=== PATIENT | female | born 1950 | race Caucasian/White ===

== ENCOUNTER 2023-12-27 07:48 | Emergency (ER) | payer OTHER, SELFPAY ==
[2023-12-27 08:00] VITALS: BP 143/76
--- NOTE | 2023-12-27 08:58 | CON.VAS ---
Consultation
Consultation Request
Performing Provider: Kajal
Reason for Consultation: New left hip pain
Medical History
-
Chief Complaint: Left hip pain
History of Present Illness:
73-year-old female with history of COPD, current smoker, PAD (vascular interventional history below), hypercholesterolemia, and GERD. Patient here today for new left hip pain that began yesterday morning. Patient noticed it upon waking yesterday,
it has worsened since that time. Patient has known chronic occlusions in bilateral SFA's. Also has a history of angioplasty/stenting in the left leg.
Vascular consult for possible buttock claudication/cold left leg/left hip pain. Patient seen in the ER bedside with Dr. Rdz. Patient's left foot is mildly cooler than the right, slight difference in color when comparing feet. Doppler PT
signals present, +2 right femoral pulse, +1 left femoral pulse.
Vascular history:
06/26/20- Angioplasty of the left superficial femoral artery using a 5 mm drug-eluting balloon, angioplasty and stent of the left popliteal artery using a 5x 80 Zilver PTX.
08/23/19- Angioplasty and stent of the left SFA with a 6 x 80, 6 x 140 Zilver stent.
Past Medical History
Past Medical History: COPD, HTN and Hypercholesterolemia
Past Surgical History: Cholecystectomy and Other (Lower extremity angioplasty/stents)
Social History
Tobacco: Smoker (1.5 ppd)
Personal:
Living: With Family
Family History
Family History: Reviewed & Not Pertinent
Allergies / Home Medications
Allergy/AdvReac Type Severity Reaction Status Date / Time
moxifloxacin [From Avelox] Allergy Severe Anaphylaxis Verified 12/27/23 08:02
Medication Instructions Recorded Confirmed Type
clopidogrel 75 mg tablet 75 mg PO DAILY #30 tabs 08/23/19 10/20/22 Rx
simvastatin 20 mg tablet 20 mg PO HS High cholesterol 02/26/22 10/20/22 History
acetaminophen 325 mg tablet 650 mg PO Q4H PRN mild pain 10/20/22 10/20/22 History
(Tylenol)
aspirin 81 mg tablet,delayed 81 mg PO DAILY Blood clot 10/20/22 10/20/22 History
release prevention/tx
dextromethorphan-guaifenesin 30 1 tab PO Q12H PRN cough 10/20/22 10/20/22 History
mg-600 mg tablet extended
hr (Mucinex DM)
fluticasone fur. 100 mcg-umeclid 1 inh inhalation R DAILY 10/20/22 10/20/22 History
62.5 mcg-vilant 25 mcg Lung/breathing issues
inhalat.powder (Trelegy Ellipta)
kbnfqdog-bkroqsfu-ynek 8 mg-folic 1 tab PO DAILY Supplement 10/20/22 10/20/22 History
ac 400 mcg-vit K 10 mcg chew
tablet (Centrum Chewables)
benzonatate 100 mg capsule 200 mg PO BID #14 caps 10/23/22 Rx
budesonide 0.5 mg/2 mL suspension 0.5 mg (2 mL) inhalation R BID #1 10/23/22 Rx
for nebulization appful
dextromethorphan-guaifenesin 10 10 ml PO Q4H PRN cough #474 mL 10/23/22 Rx
mg-100 mg/5 mL oral liquid
doxycycline hyclate 100 mg capsule 100 mg PO Q12 #3 caps 10/23/22 Rx
nicotine 21 mg/24 hr daily 21 mg transdermal DAILY #28 ea 10/23/22 Rx
transdermal patch
pantoprazole 40 mg tablet,delayed 40 mg PO DAILY #7 tabs 10/23/22 Rx
release
prednisone 10 mg tablet 40 mg PO DAILY #16 tabs 10/23/22 Rx
Review of Systems
-
History Source: Patient and Family
All other systems: Negative unless noted
Constitutional: Reports No Symptoms
EENT: Reports No Symptoms
Respiratory: Reports No Symptoms
Cardiac: Reports No Symptoms
Vascular: Denies Leg Pain / Claudication
Abdomen/GI: Reports No Symptoms
: Reports No Symptoms
Musculoskeletal: Reports Joint Pain and Muscle Pain
Skin: Reports No Symptoms
Neurological: Reports No Symptoms
Endocrine: Reports No Symptoms
Physical Exam
Vital Signs
Temp Pulse Resp BP Pulse Ox
98.0 F 80 16 143/76 98
12/27/23 08:00 12/27/23 08:00 12/27/23 08:00 12/27/23 08:00 12/27/23 08:00
Physical Exam
General: No Apparent Distress
HEENT: Normocephalic and Atraumatic
Respiratory: Non Labored Respirations
Cardiac: Negative JVD
Breast: Deferred by me
GI: Soft and Non Tender
Musculoskeletal: No Clubbing, No Cyanosis and No Edema
Skin: Warm
Neuro: Awake, Alert and Oriented
Psych: Calm
Pulses: Left Femoral: +1, Right Femoral: +2 and Bilateral Posterior Tibial: Doppler
Assessment / Plan
-
73-year-old female with new left hip pain, known PAD history
Plan:
-CTA aorta with runoff, will follow-up after CTA
-Does not seem to be vascular in nature, patient with PT Doppler signals and palpable femoral pulses
-Seen and assessed with Dr. Rdz
[2023-12-27 09:01] LABS: % Basophils 0.8 % (0-2); % Eosinophils 2.7 % (0-6); % Immature Granulocytes 0.3 % (0-0.5); % Lymphocytes 22.8 % (20.5-51.1); % Monocytes 6.6 % (1.7-9.3); % Neutrophils 66.8 % (42.2-75.2); Absolute Basophils 0.1 10^3/uL (0-0.2); Absolute Eosinophils 0.2 10^3/uL (0-0.7); Absolute Monocytes 0.6 10^3/uL (0.1-0.6); Absolute Neutrophils 5.9 10^3/uL (1.4-6.5); Hematocrit 44.2 % (37.0-47.0); Hemoglobin 15.1 g/dL (12.0-16.0); Mean Corp Hgb Conc. 34.2 g/dL (33.0-37.0); Mean Corpuscular Hgb 31.2 pg (27.0-31.0); Mean Corpuscular Volume 91.3 fL (81.0-99.0); Mean Platelet Volume 9.9 fL (7.4-10.4); Nucleated Red Blood Cells % 0 %; Platelet Count 189 10^3/uL (130-400); Red Blood Cell Count 4.84 10^6/uL (4.20-5.40); Red Cell Dist. Width 13.2 % (11.5-14.5); White Blood Cell Count 8.8 10^3/uL (4.8-10.8)
[2023-12-27 09:13] LABS: INR 1.12; PT 14.2 Sec (11.4-14.6)
[2023-12-27 09:14] LABS: APTT 30.4 Sec (23.4-35.0)
[2023-12-27] MEDS: DILAUDID 1 MG IV ×2 (09:14→11:17)
[2023-12-27] MEDS: NSS 1000 IV (09:14)
[2023-12-27] MEDS: ZOFRAN 4 MG IV ×2 (09:14→11:16)
[2023-12-27 09:17] LABS: ALT (SGPT) 24 U/L (0-35); AST (SGOT) 20 U/L (14-36); Alkaline Phosphatase 80 U/L (38-126); Blood Urea Nitrogen 14 mg/dl (7-17); Calcium 8.8 mg/dl (8.4-10.2); Carbon Dioxide 25 mmol/L (22-30); Chloride 105 mmol/L (98-107); Glucose 124 mg/dl (70-99); Potassium 4.2 mmol/L (3.5-5.1); Sodium 134 mmol/L (135-145); Total Bilirubin 1.1 mg/dl (0.2-1.3); Total Protein 7.4 g/dl (6.3-8.2); eGFR > 60.00
--- NOTE | 2023-12-27 09:52 | ED.GENMED ---
History of Present Illness
General
Chief Complaint: Musculo-Skeletal Complaint
Source: patient, records and previous hospital records
Exam Limitations: none
Time Seen by Provider: 12/27/23 08:19
Nursing documentation reviewed up to this point in time: agreed with
Travel History
Have you had any contact with someone who has COVID-19?: No
Do you have any symptoms of coronavirus? Fever > 100 degrees, chills, cough, shortness of breath, sore throat, loss of taste or smell, muscle aches, or headache?: No
History of Present Illness
History of Present Illness:
73-year-old female history of peripheral vascular disease status post stenting continues to smoke lumbar disc disease, ligamentous injury to left knee presents with fairly severe acute left buttock pain, 2 days ago Her up at night took 3 oxycodone
through the night without much relief states she has chronic coolness in her left foot, minimal pain now, has seen Dr. Rdz previously initially says pain is in her hip appears to be more in her buttock actually somewhat worse with movement no
fevers no nausea or vomiting
Past History
Past History
ED Past Medical History: COPD and Hypercholesterolemia
ED Past Surgical History: Cholecystectomy, Orthopedic and Other (Peripheral vascular procedures)
Social History
Tobacco: Smoker
Alcohol: None
Drug: None
Living: with family
Employment: Retired
Family History
Family History: Other
Phy Exam
Physical Exam
Physical Exam:
Physical Exam
General: 73-year-old female looks uncomfortable
Neck: No jaundice does have a smell of tobacco
Heart: s1/s2 regular rate and rhythm, no murmur. equal radial pulses.
Lungs: Faint expiratory wheeze
Abdomen: Nontender
Neuro: alert and oriented. no focal neurological deficits
Skin: no rash
Psychiatric: well kept. interactive and cooperative
Extremities: Left lower extremity cool slightly no pain with range of motion of the bilateral hips
Course
Orders/Labs/Results
Orders:
Orders
12/27/23 08:36
CT Abd Aorta Angio W/ Run Off Urgent
Comment:
Reason For Exam: claudication, back and leg pain
12/27/23 08:55
Complete Blood Count/With Diff Urgent
Comprehensive Metabolic Panel Urgent
PTT Urgent
Prothrombin Time Urgent
12/27/23 09:09
0.9% Sodium Chloride 1000 ml [Nss] 1,000 ml IV BOLUS
HYDROmorphone [Dilaudid] 1 mg IV NOW STA
Ondansetron Injectable [Zofran] 4 mg IV NOW STA
12/27/23 11:06
Ketorolac [Toradol] 15 mg IV NOW STA
12/27/23 11:07
HYDROmorphone [Dilaudid] 1 mg IV NOW STA
Ondansetron Injectable [Zofran] 4 mg IV NOW STA
12/27/23 13:30
UA Reflex to Culture [Urinalysis Reflex To Culture] Urgent
Date Specimen was Collected: 12/27/23
Time Specimen was Collected: 13:25
Abnormal Lab Results
12/27/23
08:55
MCH 31.2 H pg
(27.0-31.0)
Sodium 134 L mmol/L
(135-145)
Glucose 124 H mg/dl
(70-99)
12/27/23 08:55
12/27/23 08:55
Vital Signs
Initial and Last Documented VS:
Initial Vital Signs
Temp Pulse Resp BP Pulse Ox
98.0 F 80 16 143/76 98
12/27/23 08:00 12/27/23 08:00 12/27/23 08:00 12/27/23 08:00 12/27/23 08:00
Last Documented Vital Signs
Temp Pulse Resp BP Pulse Ox
98.1 F 80 18 120/75 96
12/27/23 13:30 12/27/23 13:30 12/27/23 13:30 12/27/23 13:30 12/27/23 13:30
MDM/Problems Addressed
Differential Diagnosis Includes:
PVD claudication lumbar radicular doubt acute fracture or infection of the knee
MDM/Problems Addressed:
Left buttock hip pain
Chronic conditions affecting care:
PVD smoking lumbar disc disease
Acute Exacerbation and/or Progression of Chronic Illness:
PVD smoking lumbar disc disease
*Radiology
Radiology exam reviewed: preliminary read by ED provider
*Pulse Oximetry
Patient hypoxic: no
*Certified Nuclear Medicine Technologist Interpretation
Rate: normal
Interpretation: normal
Heart Rate: 78
Rhythm: sinus
*Critical Care Note
Total Time (30-74mins, 75-104mins- exclusive of procedures): Not Applicable
Data Reviewed
Review of Other/Old Records Reveals: Labs and Progress Notes
Source: records, family and physician
Update Note
Update Note:
Update initial concern for occluded stent she is having rest pain which could be claudication I did ask vascular to see her, she has palpable groin pulses and dopplerable pulses in her feet, agree with proceeding with a CT angiogram
11 AM CAT scan completed report reviewed
Reviewed with vascular
Patient appears more comfortable states she still in pain she is actually point tender over her left sacroiliac joint she is wondering about a UTI we will check a urine try to get her comfortable
ED Attending Note
-
Portions of this chart may have been created with voice recognition software.� Occasional wrong word or��sound alike� substitutions may have occurred due to the inherent limitations of voice recognition software.
Discharge Plan
Departure
Patient Disposition: Home (Routine Discharge)
Date of Disposition: 12/27/23
Time of Disposition: 12:14
Patient with high blood pressure during this ER visit?: No
Condition: Good
Discharge Problem:
Back pain
Instructions: Using Cold for Pain, Back Pain
Prescriptions:
New
oxycodone 10 mg tablet
10 mg PO Q8H PRN (Reason: Pain) Qty: 14 0RF
No Action
clopidogrel 75 MG tablet
75 mg PO DAILY Qty: 30 0RF
simvastatin 20 MG tablet
20 mg PO HS
acetaminophen [Tylenol] 325 mg Tablet
650 mg PO Q4H PRN (Reason: mild pain)
aspirin 81 mg Tablet,Delayed Release (Dr/Ec)
81 mg PO DAILY
Mucinex DM 30-600 mg Tablet Extended Release 12 Hr
1 tab PO Q12H PRN (Reason: cough)
Trelegy Ellipta 100-62.5-25 mcg blister with device
1 inh INHALATION R DAILY
Centrum Chewables 8 mg-400 mcg- 10 mcg Tablet,Chewable
1 tab PO DAILY
doxycycline hyclate 100 mg Capsule
100 mg PO Q12 Qty: 3 0RF
benzonatate 100 mg Capsule
200 mg PO BID Qty: 14 0RF
dextromethorphan-guaifenesin 10-100 mg/5 mL liquid
10 ml PO Q4H PRN (Reason: cough) Qty: 474 0RF
pantoprazole 40 mg Tablet,Delayed Release (Dr/Ec)
40 mg PO DAILY Qty: 7 0RF
nicotine 21 mg/24 hr Patch 24 Hour
21 mg transdermal DAILY Qty: 28 0RF
budesonide 0.5 mg/2 mL Suspension For Nebulization
0.5 mg inhalation R BID Qty: 1 0RF
prednisone 10 mg tablet
40 mg PO DAILY Qty: 16 0RF
Rx Instructions:
take 4 tabs 1 day then 3 tabs X2 days then 2 tabs X2 days then 1 tab X2 days.
prednisone 10 mg Tablet
See Rx Instructions .ROUTE .COMPLEX Qty: 45 0RF
Rx Instructions:
Take By Mouth:
50 mg daily x3 days, 40 mg daily x3 days,
30 mg daily x3 days, 20 mg daily x3 days,
10 mg daily x3 days
Referrals:
Immanuel Orellana, DO [Family Provider] - Next open appointment
Interventions
Interventions:
*Risk Screen - Suicide Last Done: 12/27/23 08:30
*General Assessment Last Done: 12/27/23 08:30
*Neglect/Abuse Screening Last Done: 12/27/23 08:30
ED- Fall Risk Assessment Last Done: 12/27/23 11:28
*ED COVID-19 Vaccine History Last Done: 12/27/23 08:00
*Nursing Disposition Last Done: 12/27/23 14:18
ED-Musculoskeletal Assessment Last Done: 12/27/23 08:30
Discharge Date and Time
Discharge Date/Time: 12/27/23 14:19
[2023-12-27] MEDS: TORADOL 15 MG IV (11:15)
[2023-12-27 11:27] VITALS: BP 118/72
[2023-12-27 13:30] VITALS: BP 120/75
[2023-12-27 13:42] LABS: Urine Albumin Trace (Neg - Trace); Urine Bilirubin Negative (Negative); Urine Character Clear (Clear); Urine Color Yellow; Urine Glucose Negative (Negative); Urine Ketone Negative (Negative); Urine Leukocyte Negative (Negative); Urine Nitrite Negative (Negative); Urine Occult Blood Negative (Negative); Urine Specific Gravity 1.015 (<1.030); Urine Urobilinogen 1+ (Neg - 1+)
== END 2023-12-27 14:19 | disposition home or self-care (01) ==
LOC: EMR 07:48
PROVIDERS: EMERGENCY PHYSICIAN Emergency Medicine; FAMILY PHYSICIAN Family Medicine; OTHER PHYSICIAN Surgery
DX: M54.9 Dorsalgia, unspecified (principal); F17.210 Nicotine dependence, cigarettes, uncomplicated; J44.9 Chronic obstructive pulmonary disease, unspecified; I73.9 Peripheral vascular disease, unspecified; E78.00 Pure hypercholesterolemia, unspecified; K21.9 Gastro-esophageal reflux disease without esophagitis
CPT/HCPCS: 99285; 96374; 96375 ×2; 96361; 96376 ×2; 75635; 80053; 81003; 85025; 85610; 85730; Q9967

== ENCOUNTER 2023-12-28 07:24 | Emergency (ER) | payer OTHER, SELFPAY ==
[2023-12-28 07:28] VITALS: BP 131/74
[2023-12-28] MEDS: DILAUDID 1 MG IV ×2 (08:02→09:40)
[2023-12-28 08:04] VITALS: BP 130/57
[2023-12-28] MEDS: ZOFRAN 4 MG IV (08:12)
--- NOTE | 2023-12-28 09:32 | ED.GENMED ---
History of Present Illness
General
Chief Complaint: Back Pain
Source: patient and family
Time Seen by Provider: 12/28/23 07:43
Travel History
Have you had any contact with someone who has COVID-19?: No
Do you have any symptoms of coronavirus? Fever > 100 degrees, chills, cough, shortness of breath, sore throat, loss of taste or smell, muscle aches, or headache?: No
History of Present Illness
History of Present Illness:
73-year-old female presents with persistent and severe back pain. She has a history of back surgeries. The patient was seen yesterday and had a full workup and was seen by vascular to rule out a vascular etiology. The pain persist. Pain is in
her left upper buttocks. The patient denies tingling. Does report some radiation down toward the knee at times. No motor weakness. No loss of bowel or bladder function. No fevers. Patient states she has been taking oxycodone without relief
Past History
Past History
ED Past Medical History: COPD, Hypercholesterolemia and Other (Peripheral vascular disease, chronic bronchitis)
ED Past Surgical History: Cholecystectomy, Orthopedic and Other (Peripheral vascular procedures)
Social History
Tobacco: Smoker
Alcohol: None
Drug: None
Living: with family
Employment: Retired
Family History
Family History: Other
Phy Exam
Physical Exam
Physical Exam:
CONSTITUTIONAL Patient alert and oriented to person, place and time. Moderate pain distress. Vital signs reviewed.
HEAD atraumatic, normocephalic.
EYES eyelids normal to inspection, Pupils equally round and reactive to light, Extraocular muscles intact, Conjunctiva normal, Sclera normal.
NECK normal range of motion, Trachea midline, no jugular venous distention.
RESPIRATORY CHEST No respiratory distress noted, Chest expansion equal
BACK normal inspection, no obvious deformities, limited range of motion due to pain
UPPER EXTREMITY range of motion normal, Motor strength normal, no cyanosis, no edema.
LOWER EXTREMITY range of motion normal, Motor strength normal, no cyanosis, no edema. Chronic venous stasis changes bilaterally
NEURO Speech normal, No focal motor deficits, [place] coma scale 15, Memory normal, Cranial Nerves intact to screening exam.
SKIN skin warm, dry, and normal in color.
PSYCHIATRIC patient oriented to person place and time, Normal affect.
Course
Orders/Labs/Results
Orders:
Orders
12/28/23 07:54
HYDROmorphone [Dilaudid] 1 mg IV NOW STA
12/28/23 08:10
Ondansetron Injectable [Zofran] 4 mg .ROUTE .STK-MED ONE
12/28/23 08:12
Ondansetron Injectable [Zofran] 4 mg IV NOW STA
12/28/23 09:28
Dexamethasone Sod Phosphate [Decadron] 10 mg IV NOW STA
HYDROmorphone [Dilaudid] 1 mg IV NOW STA
Vital Signs
Initial and Last Documented VS:
Initial Vital Signs
Temp Pulse BP Pulse Ox
97.6 F 82 131/74 93
12/28/23 07:28 12/28/23 07:28 12/28/23 07:28 12/28/23 07:28
Last Documented Vital Signs
Temp Pulse Resp BP Pulse Ox
97.6 F 81 18 127/65 94
12/28/23 07:28 12/28/23 09:46 12/28/23 09:46 12/28/23 09:46 12/28/23 09:46
MDM/Problems Addressed
MDM/Problems Addressed:
Low back pain, lumbar radiculopathy
*Pulse Oximetry
Patient hypoxic: no
*Critical Care Note
Total Time (30-74mins, 75-104mins- exclusive of procedures): Not Applicable
Data Reviewed
Review of Other/Old Records Reveals: Progress Notes (Consult from vascular reviewed from yesterday)
Source: patient
Further Testing Considered But Not Given:
Consider CT scan with patient CT imaging yesterday to rule out vascular etiology
Patient Management
Escalation/DeEscalation of care consider admission/obs:
Reassessed the patient and she does feel a bit better. Mild pain persist. Will add steroids. Patient will call her [employer] tomorrow for possible injections. Outpatient follow-up with spine as well
ED Attending Note
-
Portions of this chart may have been created with voice recognition software.� Occasional wrong word or��sound alike� substitutions may have occurred due to the inherent limitations of voice recognition software.
Discharge Plan
Departure
Patient Disposition: Home (Routine Discharge)
Date of Disposition: 12/28/23
Time of Disposition: 10:47
Patient with high blood pressure during this ER visit?: No
Discharge Problem:
Acute lumbar radiculopathy
Instructions: Low Back Pain (DC), Radiculopathy (DC)
Prescriptions:
New
prednisone 10 mg Tablet
See Rx Instructions .ROUTE .COMPLEX Qty: 45 0RF
Rx Instructions:
Take By Mouth:
50 mg daily x3 days, 40 mg daily x3 days,
30 mg daily x3 days, 20 mg daily x3 days,
10 mg daily x3 days
No Action
clopidogrel 75 MG tablet
75 mg PO DAILY Qty: 30 0RF
simvastatin 20 MG tablet
20 mg PO HS
acetaminophen [Tylenol] 325 mg Tablet
650 mg PO Q4H PRN (Reason: mild pain)
aspirin 81 mg Tablet,Delayed Release (Dr/Ec)
81 mg PO DAILY
Mucinex DM 30-600 mg Tablet Extended Release 12 Hr
1 tab PO Q12H PRN (Reason: cough)
Trelegy Ellipta 100-62.5-25 mcg blister with device
1 inh INHALATION R DAILY
Centrum Chewables 8 mg-400 mcg- 10 mcg Tablet,Chewable
1 tab PO DAILY
doxycycline hyclate 100 mg Capsule
100 mg PO Q12 Qty: 3 0RF
benzonatate 100 mg Capsule
200 mg PO BID Qty: 14 0RF
dextromethorphan-guaifenesin 10-100 mg/5 mL liquid
10 ml PO Q4H PRN (Reason: cough) Qty: 474 0RF
pantoprazole 40 mg Tablet,Delayed Release (Dr/Ec)
40 mg PO DAILY Qty: 7 0RF
nicotine 21 mg/24 hr Patch 24 Hour
21 mg transdermal DAILY Qty: 28 0RF
budesonide 0.5 mg/2 mL Suspension For Nebulization
0.5 mg inhalation R BID Qty: 1 0RF
prednisone 10 mg tablet
40 mg PO DAILY Qty: 16 0RF
Rx Instructions:
take 4 tabs 1 day then 3 tabs X2 days then 2 tabs X2 days then 1 tab X2 days.
oxycodone 10 mg tablet
10 mg PO Q8H PRN (Reason: Pain) Qty: 14 0RF
Referrals:
Immanuel Orellana, [Family Provider] -
Activity Restrictions/Additional Instructions:
Please see your precision agriculture specialist or [employer] in the next 48 hours. Please rest. Return for bladder dysfunction, bowel dysfunction, fevers or any other concerns.
Interventions
Interventions:
*Risk Screen - Suicide Last Done: 12/28/23 08:07
*General Assessment Last Done: 12/28/23 08:04
*Neglect/Abuse Screening Last Done: 12/28/23 08:04
*ED COVID-19 Vaccine History Last Done: 12/28/23 07:30
ED-Musculoskeletal Assessment Last Done: 12/28/23 08:04
[2023-12-28] MEDS: DECADRON 10 MG IV (09:41)
[2023-12-28 09:46] VITALS: BP 127/65
== END 2023-12-28 11:51 | disposition home or self-care (01) ==
LOC: EMR 07:24
PROVIDERS: EMERGENCY PHYSICIAN Emergency Medicine; FAMILY PHYSICIAN Family Medicine
DX: M54.16 Radiculopathy, lumbar region (principal); J44.9 Chronic obstructive pulmonary disease, unspecified; E78.00 Pure hypercholesterolemia, unspecified; I73.9 Peripheral vascular disease, unspecified; F17.200 Nicotine dependence, unspecified, uncomplicated; Z90.49 Acquired absence of other specified parts of digestive tract
CPT/HCPCS: 99282; 96374; 96375; 96376

== ENCOUNTER → 2023-12-29 16:28 | Outpatient (REF) | payer OTHER, SELFPAY | LOC: RAD 16:28 | PROVIDERS: ATTENDING PHYSICIAN Family Medicine | DX: M54.16 Radiculopathy, lumbar region (principal) | CPT/HCPCS: 72110; 73502 ==

== ENCOUNTER 2024-01-01 08:16 | Inpatient (IN) | payer OTHER, SELFPAY ==
[2023-12-30] VITALS (7 sets, daily range): BP systolic 137–157; BP diastolic 64–81; BMI 29.6; BMI 29.1
--- NOTE | 2023-12-30 09:34 | ED.GENMED ---
History of Present Illness
General
Chief Complaint: Back Pain
Source: patient
Exam Limitations: none
Time Seen by Provider: 12/30/23 09:25
Nursing documentation reviewed up to this point in time: agreed with
Travel History
Have you had any contact with someone who has COVID-19?: No
Do you have any symptoms of coronavirus? Fever > 100 degrees, chills, cough, shortness of breath, sore throat, loss of taste or smell, muscle aches, or headache?: No
History of Present Illness
History of Present Illness:
The patient is a pleasant 73-year-old female with a past medical history of peripheral artery disease with stent placement, who comes in with complaints of acute onset of left lower back pain radiating down to the level of her left knee. Patient
denies numbness and weakness of the legs. She denies bowel and bladder incontinence. Patient was evaluated in the emergency department 3 days ago for this and underwent a CT angiogram and vascular consult who did not feel that patient's symptoms
were due to a vascular etiology. Patient reports she was seen by her primary care doctor last night because the pain was severe and despite taking oxycodone and prednisone, the pain is still severe and she is unable to walk. Patient reports that
her primary care doctor told her to come to the ED to get admitted to the hospital.
Past History
Past History
ED Past Medical History: COPD, Hypercholesterolemia and Other (Peripheral vascular disease, chronic bronchitis)
ED Past Surgical History: Cholecystectomy, Orthopedic and Other (Peripheral vascular procedures)
Social History
Tobacco: Smoker
Alcohol: None
Drug: None
Living: with family
Employment: Retired
Family History
Family History: Other
Review of Systems
Review of Systems
Allergies reviewed?: Yes
All Other Systems: ROS reviewed and negative except as documented in HPI and ROS
Constitutional: Reports no symptoms
EENT: Reports no symptoms
Respiratory: Reports no symptoms
Cardiac: Reports no symptoms
ABD/GI: Reports no symptoms
: Reports no symptoms
Musculoskeletal: Reports muscle pain and back pain
Skin: Reports no symptoms
Neurological: Reports no symptoms
Endocrine: Reports no symptoms
Hematologic/Lymphatic: Reports no symptoms
Psychiatric: Reports no symptoms
Phy Exam
Physical Exam
Physical Exam:
Physical Exam
General: Patient appears uncomfortable. Holding her left lower back
Neck: supple. no meningeal signs. normal posterior pharynx
Heart: s1/s2 regular rate and rhythm, no murmur. equal radial and femoral pulses bilaterally.
Lungs: no acute respiratory distress. clear bilaterally
Abdomen: normal bowel sounds. not tender. no CVAT
Neuro: alert and oriented. no focal neurological deficits. No saddle anesthesia. 5 out of 5 strength in all extremities.
Skin: no rash
Psychiatric: well kept. interactive and cooperative
Extremities: no edema. no calf tenderness. negative homans. good distal pulses. pulses obtained by Doppler in bilateral feet.
Course
Orders/Labs/Results
Orders:
Orders
12/30/23 09:59
CMP [Comprehensive Metabolic Panel] Urgent
Complete Blood Count/With Diff Urgent
12/30/23 10:02
HYDROmorphone [Dilaudid] 0.5 mg IV NOW STA
Ondansetron Injectable [Zofran] 4 mg IV NOW STA
12/30/23 11:13
HYDROmorphone [Dilaudid] 1 mg IV NOW STA
12/30/23 12:46
MR Lumbar Without Contrast Routine
Comment:
Reason For Exam: left sided back pain
Recent pill cam endoscopy?: No
12/30/23 12:47
Dexamethasone Sod Phosphate [Decadron] 4 mg IV NOW STA
12/30/23 12:54
Admit/Transfer Patient As Directed
Co-Sign Provider:
Level of Care: Observation services
Assign to:: Medical/Surgical
Physician / Group: back pain
Diagnosis: back pain
12/30/23 12:55
Code Status As Directed
Resuscitation Status: Full Code
12/30/23 13:11
Lorazepam [Ativan] 0.5 mg IV NOW STA
12/30/23 13:16
0.9% Sodium Chloride [Nss (Preservative Free)] 0.25 ml IV NOW STA
Abnormal Lab Results
12/30/23
09:59
WBC 14.2 H 10^3/uL
(4.8-10.8)
RBC 5.67 H 10^6/uL
(4.20-5.40)
Hgb 17.4 H g/dL
(12.0-16.0)
Hct 52.0 H %
(37.0-47.0)
Abs Immat Gran (auto) 0.1 H 10^3/uL
(0-0.05)
Absolute Neuts (auto) 10.0 H 10^3/uL
(1.4-6.5)
Absolute Monos (auto) 1.2 H 10^3/uL
(0.1-0.6)
BUN 27 H mg/dl
(7-17)
Glucose 119 H mg/dl
(70-99)
Total Protein 8.4 H g/dl
(6.3-8.2)
12/30/23 09:59
12/30/23 09:59
Vital Signs
Initial and Last Documented VS:
Initial Vital Signs
Temp Pulse Resp BP Pulse Ox
97.6 F 66 18 140/78 94
12/30/23 09:01 12/30/23 09:01 12/30/23 09:01 12/30/23 09:01 12/30/23 09:01
Last Documented Vital Signs
Temp Pulse Resp BP Pulse Ox
97.6 F 82 20 138/64 97
12/30/23 09:01 12/30/23 11:23 12/30/23 11:23 12/30/23 11:23 12/30/23 11:23
MDM/Problems Addressed
Differential Diagnosis Includes:
Acute back pain with sciatica, peripheral arterial disease, DVT
MDM/Problems Addressed:
Patient presents with acute left-sided back pain radiating down towards left knee
Chronic conditions affecting care:
Arthritic spine
*Radiology
Radiology exam reviewed: radiology read reviewed (Lumbar spine and hip x-ray reviewed from yesterday)
*Pulse Oximetry
Patient hypoxic: no
*EKG
Interpreted by ED Provider?: NA
*Critical Care Note
Total Time (30-74mins, 75-104mins- exclusive of procedures): Not Applicable
Data Reviewed
Review of Other/Old Records Reveals: Progress Notes (Vascular consult reviewed from 3 days ago which shows that they do not feel symptoms are related to patient's peripheral arterial disease)
Source: patient
Patient Management
Discussion with other providers: Hospitalist
Escalation/DeEscalation of care consider admission/obs:
Patient admitted for intractable acute left back pain
ED Attending Note
-
Portions of this chart may have been created with voice recognition software.� Occasional wrong word or��sound alike� substitutions may have occurred due to the inherent limitations of voice recognition software.
Discharge Plan
Departure
Patient Disposition: Admit
Date of Disposition: 12/30/23
Time of Disposition: 09:53
Admit to: Med/Surg
Presentation/result/management discussed w/ accepting MD/DO: Hospitalist
Condition: Good
Covid-19: Not Applicable
Discharge Problem:
Intractable low back pain
Interventions
Interventions:
*Risk Screen - Suicide Last Done: 12/30/23 09:38
*General Assessment Last Done: 12/30/23 09:38
*Neglect/Abuse Screening Last Done: 12/30/23 09:38
*ED COVID-19 Vaccine History Last Done: 12/30/23 09:38
ED-Musculoskeletal Assessment Last Done: 12/30/23 09:40
[2023-12-30 10:10] LABS: % Basophils 0.2 % (0-2); % Eosinophils 0.1 % (0-6); % Immature Granulocytes 0.4 % (0-0.5); % Lymphocytes 20.7 % (20.5-51.1); % Monocytes 8.2 % (1.7-9.3); % Neutrophils 70.4 % (42.2-75.2); Absolute Immature Granulocytes 0.1 10^3/uL (0-0.05); Absolute Lymphocytes 2.9 10^3/uL (1.2-3.4); Absolute Monocytes 1.2 10^3/uL (0.1-0.6); Hemoglobin 17.4 g/dL (12.0-16.0); Mean Corp Hgb Conc. 33.5 g/dL (33.0-37.0); Mean Corpuscular Hgb 30.7 pg (27.0-31.0); Mean Corpuscular Volume 91.7 fL (81.0-99.0); Mean Platelet Volume 10.2 fL (7.4-10.4); Nucleated Red Blood Cells % 0 %; Platelet Count 278 10^3/uL (130-400); Red Blood Cell Count 5.67 10^6/uL (4.20-5.40); White Blood Cell Count 14.2 10^3/uL (4.8-10.8)
[2023-12-30] MEDS: ZOFRAN 4 MG IV (10:13)
[2023-12-30] MEDS: DILAUDID 0.5 MG IV ×3 (10:15→21:09)
[2023-12-30 10:37] LABS: ALT (SGPT) 32 U/L (0-35); AST (SGOT) 23 U/L (14-36); Albumin 4.6 g/dl (3.5-5.0); Alkaline Phosphatase 79 U/L (38-126); Blood Urea Nitrogen 27 mg/dl (7-17); Calcium 9.8 mg/dl (8.4-10.2); Carbon Dioxide 30 mmol/L (22-30); Chloride 98 mmol/L (98-107); Estimated Creatinine Clearance 88 ml/min; Glucose 119 mg/dl (70-99); Potassium 4.4 mmol/L (3.5-5.1); Sodium 138 mmol/L (135-145); Total Bilirubin 1.1 mg/dl (0.2-1.3); Total Protein 8.4 g/dl (6.3-8.2); eGFR > 60.00
[2023-12-30] MEDS: DILAUDID 1 MG IV (11:16)
--- NOTE | 2023-12-30 12:22 | HPS.HSE ---
Addendum entered and electronically signed by Christopher Benitez MD 12/30/23 13:36:
73 y/o female who has a history of spine surgery by Dr.Gene Soares at [facility] in 2019 with cadaver bone , stated that she was doing so well. She woke up Friday with some pain which she walked it off and it went away. Friday morning she
woke up with more pain. She has been on steroids for the 2 days and saw PCP who also to go to the ER. She states that the pain is really bad in the left lower back going to the left leg. She has chronic numbness since surgery the left leg which
has not changed. No bowel or bladder incontinence. No fever no fall or injury no lifting weights. Patient was evaluated in the ER by vascular on 12/26/2022 when she was seen in the ER and the pain not to be felt secondary to PVD.
I saw and examined the patient.
The [employer] note was reviewed and I agree with the note.
Comment:
On examination awake alert oriented
Cardiovascular system S1-S2 appreciated
Chest clear to auscultation
Lower extremity numbness-chronic
Bilateral lower extremity good strength 5 x 5
Lumbar/sciatic area tenderness on the left side
Admit for pain control
I have reached out to Dr. Orellana via [employer] text
Steroids IV, pain control with Tylenol, lidocaine, Oxycodone and Dilaudid for severe pain
Baclofen ordered
We will proceed with an MRI without contrast
PT OT evaluation
Smoking cessation advised
Continue outpatient medicines for peripheral vascular disease, Atherosclerosis, also has infrarenal abdominal aorta hyperlipidemia, COPD, hypertension
Mild fusiform dilatation
OP Follow up with her surgeon as outpatient.
Plan of care discussed with the patient.
D/W ER nurse
Original Note:
Family Physician
-
Family Physician: Immanuel Orellana
Chief Complaint
-
left lower back pain radiaing to left knee
History of Present Illness
73-year-old female with PMH for COPD,HLD, PAD, neuropathy presents with persistent and severe back pain radiating to left thigh upto knee. pain is constant, sharp excruciating pain which is affecting her activities of daily living. she is off
balance. she is having trougle ambulating.� She has a history of back surgeries.�she is taking prednisone and oxycodone since Friday with no relief in her symptoms. had x rays as outpatient. � The patient denies tingling. she has chronic numbness.�
No motor weakness.� No loss of bowel or bladder function.� No fevers.�stated some dizzy. denied GUILLEN. denied fever, chills, chest pain, sob. denied abdominal pain, n,v, d. stated constipated. no BM since last Friday. denied dysuria or hematuria.
received Dilaudid and Zofran in Er. admitting for further management.
Medical History
Past Medical History
Past Medical History: Reports Other
Additional Past Medical History:
COPD
HLD
PAD
peripheral neuropathy
Past Surgical History: Reports Other
Additional Past Surgical History:
back surgery
cholecystectomy
peripheral stent
meniscus repair
Social History
Tobacco: Smoker (1.5 pack daily)
Alcohol: Occasional
Drug: None
Family History
Family History: Not pertinent
Allergies / Home Medications
Allergies reflects when Allergies were last updated in [facility].
Home Medications with original date entered in [facility]
Allergy/Medication List:
Allergies
Allergy/AdvReac Type Severity Reaction Status Date / Time
moxifloxacin [From Avelox] Allergy Severe Anaphylaxis Verified 12/30/23 09:38
Home Medications
simvastatin 20 mg tablet 20 mg PO HS High cholesterol 02/26/22
acetaminophen 325 mg tablet (Tylenol) 650 mg PO Q4HPRN PRN mild pain 10/20/22
aspirin 81 mg tablet,delayed release 81 mg PO DAILY Blood clot prevention/tx 10/20/22
fluticasone fur. 100 mcg-umeclid 62.5 mcg-vilant 25 mcg inhalat.powder (Trelegy Ellipta) 1 inh inhalation R DAILY Lung/breathing issues 10/20/22
fnqrklwe-wktybnfd-pddj 8 mg-folic ac 400 mcg-vit K 10 mcg chew tablet (Centrum Chewables) 1 tab PO DAILY@1500 Supplement 10/20/22
albuterol sulfate 90 mcg/actuation aerosol inhaler 2 puff inhalation R Q4HPRN PRN sob 12/30/23
clopidogrel 75 mg tablet 75 mg PO DAILY Blood Clot Prevention/Tx 12/30/23
docusate sodium 100 mg capsule (Stool Softener) 100 - 200 mg PO BIDPRN PRN constipation 12/30/23
oxycodone 10 mg tablet 10 mg PO Q8HPRN PRN severe pain 12/30/23
prednisone 10 mg tablet See Rx Instructions .ROUTE .COMPLEX Anti-Inflammatory 12/30/23
tetrahydrozoline 0.05 % eye drops (Visine) 1 drp BOTH EYES DAILY Eye Condition 12/30/23
Review of Systems
-
Constitutional: Reports No Symptoms
EENT: Reports No Symptoms
Respiratory: Reports No Symptoms
Cardiac: Reports No Symptoms
Abdomen/GI: Reports No Symptoms
: Reports No Symptoms
Musculoskeletal: Reports Other (left lower back pain radiating to left LE )
Skin: Reports No Symptoms
Neurological: Reports No Symptoms
Endocrine: Reports No Symptoms
Hematologic/Lymphatic: Reports No Symptoms
Psych: Reports No Symptoms
Physical Exam
Vital Signs
Vital Signs
Temp Pulse Resp BP Pulse Ox
97.6 F 82 20 138/64 97
12/30/23 09:01 12/30/23 11:23 12/30/23 11:23 12/30/23 11:23 12/30/23 11:23
Physical Exam
General: Well Developed, Well Nourished and No Apparent Distress
HEENT: NormoCephalic, Moist mucous membranes and Atraumatic
Respiratory: Clear
Cardiac: S1/S2 and Regular Rhythm; No Murmur or Rub
GI: Soft, Non Tender, Non Distended and Normal Bowel Sounds; No Organomegaly
Rectal: Deferred by Provider
Musculoskeletal: No Clubbing, No Cyanosis and No Edema
Skin: No Rash
Neuro: AO x 3 and Nonfocal/grossly intact
Psych: Calm
Laboratory Results
-
12/30/23 09:59
12/30/23:
Laboratory Results
Total Bilirubin 1.1 mg/dl (0.2-1.3) 12/30/23:
AST 23 U/L (14-36) 12/30/23:59
ALT 32 U/L (0-35) 12/30/23:59
Alkaline Phosphatase 79 U/L (38-126) 12/30/23:59
Data Reviewed
-
Diagnostic Radiology: Report Reviewed by me
CT Scan: Report Reviewed by me
Lab Data: Labs Reviewed by me
Impression/Plan
-
#intractable left sided back pain radiating towards left knee
-lumbar spine x ray with Multilevel degenerative disc disease as described above. Progressed at all levels.Mild lumbar spine dextroscoliosis. Progressed
-Hip x ray with Mild osteoarthritis in the left hip which does not appear to have increased since 06/10/2023.� Moderate osteoarthritis of the left sacroiliac joint.Moderate discogenic degenerative disease at L5/S1.
-CT abdomen pelvis with ).The right superficial femoral artery is occluded at its origin
The right profunda femoris is patent
The distal right superficial femoral artery reconstitutes just above the popliteal artery
The popliteal artery is patent
There is three-vessel runoff into the right lower leg
2).The left superficial femoral artery occluded at its origin
There is occluded 25 cm left superficial femoral artery stent
The left popliteal artery reconstitutes at the knee and there is two-vessel runoff into the left lower leg
3).There is moderate partially calcific atherosclerotic plaque in the abdominal aorta with 8mm ulcer in the anterior plaque in the infrarenal abdominal aorta and mild fusiform aneurysmal dilatation of the abdominal aorta to 2.9 cm in diameter below
the level of this ulcerated plaque and extending to the aortic bifurcation
4). There is moderate right-sided renal cortical scarring.
5). 2 cm left renal cyst
6). There is cholecystectomy
-patient was evaluated by vascular surgery, as per vascular Does not seem to be vascular in nature, patient with PT Doppler signals and palpable femoral pulses. patient has known chronic occlusions in bilateral SFA's.� Also has a history of
angioplasty/stenting in the left leg.
-will obtain MRI of lumbar
-Tylenol 1gram TID
-oxy continued
-Decadron 4mg iv every 8 hours
-lidocaine
-dilaudid
-consulted PT
#leukocytosis likely due to steroids
-wbc 14, afebrile
-ctm
#hemoconcentration likely dehydration
=hgb 17.4
-fluids
-monitor cbc in am
#hxt of COPD
-not in acute exacerbation
-nebs from home continued
# Smoking cessation
# Ongoing tobacco use
-counseled
-on nicotine patch
#Hyperlipidemia
-statin
# Peripheral arterial disease
- Left leg stents x2
- c/w� [employer] DAPL Rx
#DVT prophylaxis
-Lovenox
#CODE status
-full code
[2023-12-30] MEDS: DECADRON 4 MG IV ×2 (13:03→20:05)
[2023-12-30] MEDS: ATIVAN 0.5 MG IV (13:49)
[2023-12-30] MEDS: NSS (PRESERVATIVE FREE) 0.25 ML IV (13:49)
[2023-12-30] MEDS: LIDOCAINE 4% PATCH 1 PATCH TOPICAL (16:27)
[2023-12-30] MEDS: NICODERM TRANSDERMAL 21 MG TRANSDERM (16:29)
[2023-12-30] MEDS: TYLENOL 1000 MG PO (16:31)
[2023-12-30] MEDS: LIORESAL 5 MG PO ×2 (16:32→21:08)
[2023-12-30] MEDS: NSS 1000 IV (16:57)
[2023-12-30] MEDS: LOVENOX 40 MG SC (18:23)
[2023-12-30] MEDS: SYMBICORT 80/4.5 MCG INHALER 2 PUFF INH (19:29)
[2023-12-30] MEDS: SENOKOT 17.1999999999999993 MG PO (20:07)
[2023-12-30] MEDS: COLACE 100 MG PO (20:07)
[2023-12-30] MEDS: LIPITOR 10 MG PO (21:08)
[2023-12-30] MEDS: ROXICODONE 10 MG PO (23:14)
[2023-12-31] MEDS: DILAUDID 0.5 MG IV ×5 (01:22→22:06)
[2023-12-31] MEDS: TYLENOL PO ×2 (03:48)
[2023-12-31] MEDS: DECADRON 4 MG IV ×3 (04:36→20:24)
[2023-12-31] MEDS: ZOFRAN 4 MG IV (05:26)
[2023-12-31 07:00] VITALS: BP 157/82
[2023-12-31] MEDS: ROXICODONE 10 MG PO ×2 (07:19→16:45)
[2023-12-31] MEDS: SPIRIVA RESPIMAT 2.5 MCG 2 PUFF INH (07:32)
[2023-12-31] MEDS: SYMBICORT 80/4.5 MCG INHALER 2 PUFF INH ×2 (07:33→19:34)
--- NOTE | 2023-12-31 07:53 | W.PN.HOSP.TC ---
Today's Communication/Plan
-
Continue pain regimen. Neurosurgery evaluation.
Assessment / Plan
Assessment / Plan
Physical exam:
General: Well Developed, Well Nourished and No Apparent Distress
HEENT: NormoCephalic, Moist mucous membranes and Atraumatic
Respiratory: Clear
Cardiac: S1/S2 and Regular Rhythm; No Murmur or Rub
GI: Soft, Non Tender, Non Distended and Normal Bowel Sounds; No Organomegaly
Cardiovascular system S1-S2 appreciated
Chest clear to auscultation
Lower extremity numbness-chronic
Bilateral lower extremity good strength 5 x 5
Lumbar/sciatic area tenderness on the left side
MRI lumbar:
IMPRESSION:
1. Left lateral disc protrusion at L2-L3 impinges upon the extraforaminal segment of the exiting left L2 nerve root. Mild adjacent left lateral paravertebral soft tissue edema.
2. Chronic degenerative and postoperative changes of the lumbar spine, as detailed above.
3. No significant spinal canal stenosis.
4. Varying degrees of chronic multilevel bilateral neuroforaminal stenosis.
5. Small left posterior disc extrusion at L5-S1 narrows the left lateral recess and contacts the descending left S1 nerve root.
A/P:
#intractable left sided back pain radiating towards left knee
-lumbar spine x ray with Multilevel degenerative disc disease as described above. Progressed at all levels.Mild lumbar spine dextroscoliosis. Progressed
-Hip x ray with Mild osteoarthritis in the left hip which does not appear to have increased since 06/10/2023.� Moderate osteoarthritis of the left sacroiliac joint.Moderate discogenic degenerative disease at L5/S1.
-CT abdomen pelvis with ).The right superficial femoral artery is occluded at its origin
The right profunda femoris is patent
The distal right superficial femoral artery reconstitutes just above the popliteal artery
The popliteal artery is patent
There is three-vessel runoff into the right lower leg
2).The left superficial femoral artery occluded at its origin
There is occluded 25 cm left superficial femoral artery stent
The left popliteal artery reconstitutes at the knee and there is two-vessel runoff into the left lower leg
3).There is moderate partially calcific atherosclerotic plaque in the abdominal aorta with 8mm ulcer in the anterior plaque in the infrarenal abdominal aorta and mild fusiform aneurysmal dilatation of the abdominal aorta to 2.9 cm in diameter below
the level of this ulcerated plaque and extending to the aortic bifurcation
4). There is moderate right-sided renal cortical scarring.
5). 2 cm left renal cyst
6). There is cholecystectomy
-patient was evaluated by vascular surgery, as per vascular Does not seem to be vascular in nature, patient with PT Doppler signals and palpable femoral pulses. patient has known chronic occlusions in bilateral SFA's.� Also has a history of
angioplasty/stenting in the left leg.
-will obtain MRI of lumbar--> see results above
-Tylenol 1gram TID
-oxy continued
-Decadron 4mg iv every 8 hours
-lidocaine
-dilaudid
-consulted PT
-Will consult neurosurgery for further eval
#leukocytosis likely due to steroids
-wbc 14, afebrile, down to 12.6
-ctm
#hemoconcentration likely dehydration
=hgb 17.4, down to 15.3
-fluids
-monitor cbc in am
#hxt of COPD
-not in acute exacerbation
-nebs from home continued
# Smoking cessation
# Ongoing tobacco use
-counseled
-on nicotine patch
#Hyperlipidemia
-statin
# Peripheral arterial disease
- Left leg stents x2
- c/w� [employer] DAPL Rx
#DVT prophylaxis
-Lovenox
#CODE status
-full code
Anticipated Discharge: 24 - 48 hours
Subjective/Interval History
-
Date of Service: December 31, 2023
Patient still having back pain radiating to the left lower extremity at the level of her knee. She has paresthesias but she has peripheral neuropathy as well. Denies bowel or bladder incontinence. Remains afebrile.
Objective Data
-
Labs:
Laboratory Results
12/31/23
06:41
WBC Pending
Hgb Pending
Hct Pending
Plt Count Pending
Sodium Pending
Potassium Pending
Chloride Pending
Carbon Dioxide Pending
BUN Pending
Creatinine Pending
Glucose Pending
Calcium Pending
Vital Signs:
Vital Signs
Temp Pulse Resp BP Pulse Ox
97.7 F 71 16 144/81 95
12/30/23 23:43 12/31/23 07:38 12/30/23 23:43 12/30/23 23:43 12/31/23 07:38
I&O
12/30/23 12/31/23 01/01/24
06:59 06:59 06:59
Intake Total 1380 / 1380
Balance 1380 / 1380
Review of Systems
-
All other systems: Reviewed and negative
[2023-12-31 08:01] LABS: Hematocrit 45.4 % (37.0-47.0); Hemoglobin 15.3 g/dL (12.0-16.0); Mean Corp Hgb Conc. 33.7 g/dL (33.0-37.0); Mean Corpuscular Volume 91.9 fL (81.0-99.0); Mean Platelet Volume 10.3 fL (7.4-10.4); Platelet Count 237 10^3/uL (130-400); Red Blood Cell Count 4.94 10^6/uL (4.20-5.40); White Blood Cell Count 12.6 10^3/uL (4.8-10.8)
[2023-12-31 08:13] LABS: Blood Urea Nitrogen 21 mg/dl (7-17); Calcium 8.5 mg/dl (8.4-10.2); Carbon Dioxide 30 mmol/L (22-30); Chloride 104 mmol/L (98-107); Estimated Creatinine Clearance 85 ml/min; Glucose 115 mg/dl (70-99); Potassium 5.3 mmol/L (3.5-5.1); Sodium 134 mmol/L (135-145); eGFR > 60.00
[2023-12-31] MEDS: NICODERM TRANSDERMAL 21 MG TRANSDERM (08:31)
[2023-12-31] MEDS: LIDOCAINE 4% PATCH 1 PATCH TOPICAL (08:31)
[2023-12-31] MEDS: MIRALAX 17 GRAMS PO (08:32)
[2023-12-31] MEDS: LIORESAL 5 MG PO ×3 (08:33→21:22)
[2023-12-31] MEDS: COLACE 100 MG PO ×2 (08:33→20:23)
[2023-12-31] MEDS: SENOKOT 17.1999999999999993 MG PO ×2 (08:33→20:23)
[2023-12-31] MEDS: TYLENOL 1000 MG PO ×2 (08:33→16:46)
[2023-12-31 10:56] VITALS: BP 141/72; PULSE 60; O2SAT 92
--- NOTE | 2023-12-31 12:36 | CON.NS ---
Addendum entered and electronically signed by Birgit Schaffer MD 12/31/23 13:17:
Patient has been added on for Left L2-3 microdiscectomy for Friday01/02/2024.
Original Note:
Consultation
-
Date/Time Consultation Performed: 12/31/2023, 12:45
Requesting Provider: Shawn
Performing Provider: Karime
Chief Complaint
History of Present Illness
This is a neurosurgical consultation on a 73-year-old female who who presented to the hospital with approximately 1 week history of low back pain, with left lower extremity radicular pain. She has history of having chronic numbness since her
surgery in the spine, in 2019. She was also evaluated vascular surgery, given she has a history of peripheral vascular disease, and was felt that her pain was not secondary to peripheral vascular disease. She has been treated with steroids for
approximate 2 days, but given persistent pain, she called her primary physician, who advised that she present to the emergency room. She denies any bowel bladder changes.
Patient reports severe hyperesthesias over the left thigh, with weakness of the left hip flexors. She is unable to bear weight on the left leg. She has chronic neuropathy of the distal left lower extremity, due to previous spine surgeries.
Review of Systems
-
10 point review of systems, including constitutional, ENT, cardiovascular, respiratory, GI, , neurologic, musculoskeletal, hematologic, endocrinologic, psychiatric, was performed, was negative, except for stated in HPI.
Medication and Allergies
Home Medications
Home Medications
Medication Instructions Recorded
simvastatin 20 mg tablet 20 mg PO HS High cholesterol 02/26/22
acetaminophen 325 mg tablet 650 mg PO Q4HPRN PRN mild pain 10/20/22
(Tylenol)
aspirin 81 mg tablet,delayed 81 mg PO DAILY Blood clot 10/20/22
release prevention/tx
fluticasone fur. 100 mcg-umeclid 1 inh inhalation R DAILY 10/20/22
62.5 mcg-vilant 25 mcg Lung/breathing issues
inhalat.powder (Trelegy Ellipta)
eentjuaf-mymmbzmu-uout 8 mg-folic 1 tab PO DAILY@1500 Supplement 10/20/22
ac 400 mcg-vit K 10 mcg chew
tablet (Centrum Chewables)
albuterol sulfate 90 mcg/actuation 2 puff inhalation R Q4HPRN PRN sob 12/30/23
aerosol inhaler
clopidogrel 75 mg tablet 75 mg PO DAILY Blood Clot 12/30/23
Prevention/Tx
docusate sodium 100 mg capsule 100 - 200 mg PO BIDPRN PRN 12/30/23
(Stool Softener) constipation
oxycodone 10 mg tablet 10 mg PO Q8HPRN PRN severe pain 12/30/23
prednisone 10 mg tablet See Rx Instructions .ROUTE 12/30/23
.COMPLEX Anti-Inflammatory
tetrahydrozoline 0.05 % eye drops 1 drp BOTH EYES DAILY Eye Condition 12/30/23
(Visine)
Allergies
Allergies
Allergy/AdvReac Type Severity Reaction Status Date / Time
moxifloxacin [From Avelox] Allergy Severe Anaphylaxis Verified 12/30/23 09:38
Physical Exam
-
Exam:
Awake, alert, conversant.
Pupils are equal and reactive to light.
Extract movements are full, without nystagmus.
Face is symmetric, tongue is midline.
Motor: 5/5 strength in upper extremities in all muscle groups.
3/5 strength in left hip flexors, and knee extensors. 5/5 distally in left lower extremity, and 5/5 in right lower extremity.
Significant hyperesthesias to light touch over the left proximal thigh.
Head is normocephalic, atraumatic
Neck is supple
Breathing nonlabored
Regular rate and rhythm
Pulses palpable
Extremities warm
Abdomen nondistended
MRI of the lumbar spine performed on 12/30/2023 was reviewed. Patient has multilevel lumbar spondylotic changes, with evidence of a hemilaminectomy defect at L5-S1 on the left with a small disc protrusion at this level which just abuts the left S1
nerve root. Additionally, there appears to be a moderate to large far lateral/extraforaminal left L2-3 disc herniation which does cause extraforaminal impingement.
Problems
-
Problem Status Onset Code
Intractable low back pain M54.59
Assessment / Plan
-
73-year-old female who presents with acute onset of left lower extremity proximal leg radicular symptoms. MRI of the lumbar spine demonstrates left L2-3 disc herniation, which is extraforaminal/far lateral. Management options were thoroughly
discussed with the patient at bedside. These included ongoing conservative measures, including high-dose steroids, physical therapy, possible epidural steroid injection. Surgical intervention was also discussed. She, given her history of previous
spinal issues, wishes to proceed with surgical intervention. This is reasonable, given her intractable pain, as well as her proximal left leg weakness.
Please continue to hold aspirin and Plavix.
Obtain relevant medical/cardiac clearance for OR later this week.
Will hopefully plan on scheduling this for 01/02/2024.
Discussed with hospital medicine.
--- NOTE | 2023-12-31 15:59 | CON.CAR ---
Addendum entered and electronically signed by Cedric Sanders MD 12/31/23 17:05:
I saw and examined the patient.
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
Comment: General: Well developed, well nourished in NAD.
Neck: Supple, no JVD, HJR, carotids +2 B/L, no bruits bilaterally.
Heart: Non displaced PMI, RRR, no murmurs, No S3, S4, no rubs.
Lungs: Scattered rhonchi
Extremities: No clubbing, cyanosis or edema bilaterally.
Neuro: Grossly nonfocal, awake, alert and oriented x3.
Yohana has a history of COPD with ongoing tobacco abuse as well as lower extremity stenting in 2019 for chronically occluded bilateral SFAs, hyperlipidemia, spinal stenosis, neuropathy, nonobstructive CAD in 2019, chronic bifascicular block by ECG.
She presents with severe back pain and is for L2 discectomy. Cardiology is consulted for clearance. She denies any chest pain or shortness of breath. Activity is limited by back pain but was able to climb steps until recently
Will check echocardiogram. Cardiology status is stable for discectomy. Risk is increased but not prohibitive.
Original Note:
Consultation
Consultation Request
Date/Time Consultation Performed: 12/31/23
Requesting Provider: Dr. Escobar
Performing Provider: Adia Lowery PA-C for Dr. Sanders
Reason for Consultation: preop eval
Medical History
-
Chief Complaint: lower back pain
History of Present Illness:
Patient is a 73-year-old female with past medical history of PAD with prior LLE stenting 2019, chronically occluded B/L SFAs, COPD with ongoing smoking, HLD, spinal stenosis/lumbar disc disease. She underwent cardiac catheterization prior to last
LLE stenting in 2019 with mild nonobstructive CAD and echo with preserved EF at OSH. She has had significant lower back pain since this past Friday. She was in the ER for this Friday, Friday, saw her PCP on Friday, and return to the ER yesterday
due to unrelenting back pain. She was admitted and seen by neurosurgery in consultation. Plan is for L2 discectomy later this week. Cardiology consulted for preoperative evaluation. She denies chest pain, shortness of breath, palpitations,
syncope. She reports leg pain has significantly limited her mobility, however has not had chest discomfort or shortness of breath with activity. She has been compliant with aspirin, Plavix, simvastatin as an outpatient. She has chronic
bifascicular block by EKG
PMH:
PAD with prior left lower extremity stenting 2018, chronically occluded bilateral SFAs
COPD
Ongoing tobacco use
Hyperlipidemia
Spinal stenosis/lumbar disc disease with history of prior laminectomy with bone grafting 03/2019
Bilateral peripheral neuropathy
Nonobstructive CAD by cath in 2018
Chronic bifascicular block by EKG
Family history of CAD
Past Medical History
Past Medical History: Other (in HPI)
Social History
Tobacco: Smoker
Employment: Employed
Family History
Family History: CAD, Diabetes and Hypertension
Allergies / Home Medications
Allergy/AdvReac Type Severity Reaction Status Date / Time
moxifloxacin [From Avelox] Allergy Severe Anaphylaxis Verified 12/30/23 09:38
Medication Instructions Recorded Confirmed Type
simvastatin 20 mg tablet 20 mg PO HS High cholesterol 02/26/22 12/30/23 History
acetaminophen 325 mg tablet 650 mg PO Q4HPRN PRN mild pain 10/20/22 12/30/23 History
(Tylenol)
aspirin 81 mg tablet,delayed 81 mg PO DAILY Blood clot 10/20/22 12/30/23 History
release prevention/tx
fluticasone fur. 100 mcg-umeclid 1 inh inhalation R DAILY 10/20/22 12/30/23 History
62.5 mcg-vilant 25 mcg Lung/breathing issues
inhalat.powder (Trelegy Ellipta)
hmkzuyby-uwsutxiw-ques 8 mg-folic 1 tab PO DAILY@1500 Supplement 10/20/22 12/30/23 History
ac 400 mcg-vit K 10 mcg chew
tablet (Centrum Chewables)
albuterol sulfate 90 mcg/actuation 2 puff inhalation R Q4HPRN PRN sob 12/30/23 12/30/23 History
aerosol inhaler
clopidogrel 75 mg tablet 75 mg PO DAILY Blood Clot 12/30/23 12/30/23 History
Prevention/Tx
docusate sodium 100 mg capsule 100 - 200 mg PO BIDPRN PRN 12/30/23 12/30/23 History
(Stool Softener) constipation
oxycodone 10 mg tablet 10 mg PO Q8HPRN PRN severe pain 12/30/23 12/30/23 History
prednisone 10 mg tablet See Rx Instructions .ROUTE 12/30/23 12/30/23 History
.COMPLEX Anti-Inflammatory
tetrahydrozoline 0.05 % eye drops 1 drp BOTH EYES DAILY Eye Condition 12/30/23 12/30/23 History
(Visine)
Review of Systems
-
History Source: Patient
All other systems: Negative unless noted
Physical Exam
Vital Signs
Temp Pulse Resp BP Pulse Ox
97.8 F 71 18 157/82 95
12/31/23 07:00 12/31/23 07:38 12/31/23 07:00 12/31/23 07:00 12/31/23 09:00
Lab Results
12/31/23 06:41
12/31/23 06:41
Physical Exam
General: No Apparent Distress and Comfortable
HEENT: Normocephalic, Anicteric and Moist Mucous Membranes
Respiratory: Wheezes and Non Labored Respirations
Cardiac: S1/S2 and Regular Rhythm
GI: Soft, Non Tender, Non Distended and Normal Bowel Sounds
Musculoskeletal: No Clubbing, No Cyanosis and No Edema
Skin: Warm and Dry
Neuro: AO x 3
Impression / Plan
-
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
Assessment:
Presentation with intractable back pain
Left L2-3 disc herniation by lumbar spine MRI
PAD with prior left lower extremity stenting 2019, chronically occluded bilateral SFAs
COPD
Ongoing tobacco use
Hyperlipidemia
Spinal stenosis/lumbar disc disease with history of prior laminectomy with bone grafting 03/2019
Bilateral peripheral neuropathy
Nonobstructive CAD by cath in 2019
Chronic bifascicular block by EKG
Family history of CAD
ECHO 2019 OSH: EF 60%, grade 1 diastolic dysfunction, trace TR
Cardiac catheterization 02/2019 at OSH: 20% distal left main stenosis, proximal 20% LAD stenosis, mid 30 to 40% LAD stenosis, 30% proximal to mid stenosis and first diagonal, ostial and proximal circumflex with 10 to 20% stenosis, proximal and mid
RCA junction with 30% stenosis, proximal third of mid RCA 40 to 50% stenosis, 40 to 50% middle third of mid RCA stenosis
Plan:
-Patient presents with intractable lower back pain. By imaging noted to have left L2-3 disc herniation. She is planned for L2/L3 microdiscectomy on 01/02/2024 by neurosurgery
-Continue pain management per primary service
-Cardiology consulted for preoperative evaluation
-She denies chest pain or shortness of breath
-EKG sinus rhythm with known bifascicular block
-Check echo, last from 2018 with results as above
-Continue outpatient statin
-Outpatient aspirin and Plavix on hold at present for upcoming surgery, resume postoperatively as able
-Follow blood pressure trends. May need addition of antihypertensive agent
-Advised smoking cessation
Data Reviewed
-
EKG: Tracing Personally Visualized and interpreted
MRI: Report Reviewed by me
Medical Tests (Nuc Med, Echo etc): Report Reviewed by me
Labs: Labs Reviewed by me
Old Records: Reviewed
--- NOTE | 2023-12-31 16:12 | CM ---
Alert awake oriented patient who lives with her 1 story home with 0 step to enter and bath/ bed room on first floor. She is independent in driving and all activities of daily living.She uses walker and cane .Offered VN she declined. DICKEY letter
given explained .Pt
No SNF/VN hx
Pharmacy [facility]
PCP Dr Orellana
PLAN Home no needs
[2023-12-31] MEDS: LOVENOX SC (18:47)
[2023-12-31] MEDS: DULCOLAX 10 MG RECTAL (20:37)
[2023-12-31] MEDS: LIPITOR 10 MG PO (21:22)
[2023-12-31 23:43] VITALS: BP 149/75
[2023-12-31] MEDS: BENADRYL 12.5 MG IV (23:44)
[2024-01-01] MEDS: TYLENOL 1000 MG PO ×3 (01:32→17:22)
[2024-01-01] MEDS: DECADRON 4 MG IV ×3 (04:16→19:37)
[2024-01-01] MEDS: DILAUDID 0.5 MG IV ×3 (04:19→23:45)
[2024-01-01 07:00] VITALS: BP 131/55
[2024-01-01] MEDS: SPIRIVA RESPIMAT 2.5 MCG 2 PUFF INH (07:51)
[2024-01-01] MEDS: SYMBICORT 80/4.5 MCG INHALER 2 PUFF INH ×2 (07:51→19:53)
[2024-01-01 07:57] LABS: Blood Urea Nitrogen 21 mg/dl (7-17); Calcium 8.7 mg/dl (8.4-10.2); Carbon Dioxide 24 mmol/L (22-30); Chloride 106 mmol/L (98-107); Estimated Creatinine Clearance 85 ml/min; Glucose 128 mg/dl (70-99); Potassium 4.5 mmol/L (3.5-5.1); Sodium 133 mmol/L (135-145); eGFR > 60.00
--- NOTE | 2024-01-01 07:59 | W.PN.HOSP.TC ---
Today's Communication/Plan
-
Pain control. Plan for surgery tomorrow
Assessment / Plan
Assessment / Plan
Physical exam:
General: Well Developed, Well Nourished and No Apparent Distress
HEENT: NormoCephalic, Moist mucous membranes and Atraumatic
Respiratory: Clear
Cardiac: S1/S2 and Regular Rhythm; No Murmur or Rub
GI: Soft, Non Tender, Non Distended and Normal Bowel Sounds; No Organomegaly
Cardiovascular system S1-S2 appreciated
Chest clear to auscultation
Lower extremity numbness-chronic
Bilateral lower extremity good strength 5 x 5. But 3 out of 5 strength in the left hip flexor and knee extensor. There is hyperesthesia left lower extremity.
Lumbar/sciatic area tenderness on the left side
MRI lumbar:
IMPRESSION:
1. Left lateral disc protrusion at L2-L3 impinges upon the extraforaminal segment of the exiting left L2 nerve root. Mild adjacent left lateral paravertebral soft tissue edema.
2. Chronic degenerative and postoperative changes of the lumbar spine, as detailed above.
3. No significant spinal canal stenosis.
4. Varying degrees of chronic multilevel bilateral neuroforaminal stenosis.
5. Small left posterior disc extrusion at L5-S1 narrows the left lateral recess and contacts the descending left S1 nerve root.
A/P:
#Acute back pain with left lower extremity radiculopathy and L2-L3 disc herniation:
-Neurosurgery consulted and plan for surgery tomorrow Friday
-Cardiology consulted preop and okay for surgery
-Holding aspirin and Plavix preop and resume postop when cleared by surgery
-Echocardiogram today unremarkable
-Continue pain control
#Leukocytosis likely due to steroids
-Afebrile
#Hyponatremia
-133 today
#hemoconcentration likely dehydration
-hgb 17.4, down to 15.3
#hxt of COPD
-not in acute exacerbation
-nebs from home continued
# Smoking cessation
# Ongoing tobacco use
-counseled
-on nicotine patch
#Hyperlipidemia
-statin
# Peripheral arterial disease
- Left leg stents x2
- c/w� SANITATION LEAD DAPL Rx postop
#DVT prophylaxis
-Lovenox
#CODE status
-full code
Anticipated Discharge: 24 - 48 hours
Subjective/Interval History
-
Date of Service: January 01, 2024
Objective Data
-
Labs:
Laboratory Results
01/01/24
07:15
Sodium 133 L
Potassium 4.5
Chloride 106
Carbon Dioxide 24
BUN 21 H
Creatinine 0.7
Glucose 128 H
Calcium 8.7
Vital Signs:
Vital Signs
Temp Pulse Resp BP Pulse Ox
98.0 F 60 18 131/55 96
01/01/24 07:00 01/01/24 07:52 01/01/24 07:00 01/01/24 07:00 01/01/24 07:52
I&O
12/31/23 01/01/24 01/02/24
06:59 06:59 06:59
Intake Total 1380 / 1380
Balance 1380 / 1380
[2024-01-01] MEDS: LIDOCAINE 4% PATCH 1 PATCH TOPICAL (08:00)
[2024-01-01] MEDS: NICODERM TRANSDERMAL 21 MG TRANSDERM (08:00)
[2024-01-01] MEDS: SENOKOT 17.1999999999999993 MG PO ×2 (08:01→19:36)
[2024-01-01] MEDS: COLACE 100 MG PO ×2 (08:01→19:37)
[2024-01-01] MEDS: LIORESAL 5 MG PO ×3 (08:01→21:15)
[2024-01-01] MEDS: MIRALAX 17 GRAMS PO (08:01)
[2024-01-01] MEDS: ROXICODONE 10 MG PO ×2 (08:03→17:25)
--- NOTE | 2024-01-01 10:30 | W.PN.CARDCBS ---
Addendum entered and electronically signed by Delphine Alves DO 01/01/24 23:36:
I saw and examined the patient.
The Micromatic Hone Operator's note was reviewed and I agree with the note.
Comment: Seen and examined following echocardiogram this morning; late entry. Patient is feeling well with plan for surgery Friday. No chest pain or pressure. No shortness of breath. Reviewed echocardiogram with patient at bedside
GEN: No distress, awake, alert,oriented x3
HEENT: mmm
LUNGS: Bronchovesicular breath sounds, clear
CV: Reg, S1/S2, no murmur
ABD: soft, BS+, NT/ND
EXT: No edema
Plan:
Presented with acute intractable back pain with radiculopathy to the left lower extremity and L2-3 disc herniation for surgery with neurosurgery tomorrow
-Cardiology consulted for preoperative cardiac risk assessment.
-2D echocardiogram today with IV echo contrast noting normal biventricular size and systolic function with no significant valve pathology.
-Telemetry sinus rhythm. EKG sinus rhythm with sinus arrhythmia and right bundle branch block/left anterior fascicular block, no significant change since August 2023
-Denies cardiac symptoms of chest pain or shortness of breath
-Stable cardiovascular status and may proceed with surgery as planned
Hypertension with elevated blood pressures
-Would monitor blood pressures in the postoperative period
-If remains elevated would add amlodipine 5 mg daily
History of nonobstructive cardiac catheterization 2019 without angina.
-Resume aspirin postop when able.
-Encourage patient to follow-up in our office, last seen by Dr. Sandy in 2019
PAD status post chronically occluded bilateral SFAs and history of prior stenting in 2019 of left lower extremity
-Resume aspirin/Plavix postop when able.
-Continue statin.
-Outpatient surveillance monitoring recommended with vascular surgery
Ongoing tobacco dependence/COPD
-Tobacco cessation strongly advised; on nicotine patch
Will follow with you
Original Note:
Today's Communication / Plan
-
ok to proceed to OR as planned 01/01 at moderate cardiac risk
resume OP asa, plavix as able post op
Impression / Plan
-
Primary Panel Lay Up Worker: last seen by Dr. DARON Sandy in 2018
Assessment:
Presentation with intractable back pain
Left L2-3 disc herniation by lumbar spine MRI
PAD with prior left lower extremity stenting 2018, chronically occluded bilateral SFAs
COPD
Ongoing tobacco use
Hyperlipidemia
Spinal stenosis/lumbar disc disease with history of prior laminectomy with bone grafting 03/2019
Bilateral peripheral neuropathy
Nonobstructive CAD by cath in 2019
Chronic bifascicular block by EKG
Family history of CAD
ECHO 2019 OSH: EF 60%, grade 1 diastolic dysfunction, trace TR
Cardiac catheterization 02/2019 at OSH: 20% distal left main stenosis, proximal 20% LAD stenosis, mid 30 to 40% LAD stenosis, 30% proximal to mid stenosis and first diagonal, ostial and proximal circumflex with 10 to 20% stenosis, proximal and mid
RCA junction with 30% stenosis, proximal third of mid RCA 40 to 50% stenosis, 40 to 50% middle third of mid RCA stenosis
Plan:
-Patient presents with intractable lower back pain. By imaging noted to have left L2-3 disc herniation. She is planned for L2/L3 microdiscectomy on 01/02/2024 by neurosurgery
-Continue pain management per primary service
-no CP, SOB
-EKG sinus rhythm with known bifascicular block
-prelim echo ok, await final report
-Continue outpatient statin
-Outpatient aspirin and Plavix on hold at present for upcoming surgery, resume postoperatively as able
-Follow blood pressure trends. May need addition of antihypertensive agent
-Advised smoking cessation
-ok to proceed to OR as planned at moderate cardiac risk. will follow post op
Progress Note - Panel Lay Up Worker
Subjective
Date of Service: January 01, 2024
no CP, SOB. continues with LLE burning/pain
Objective
Labs:
12/31/23 06:41
01/01/24 07:15
Labs
Hgb 15.3 g/dL (12.0-16.0) 12/31/23 06:41
Hct 45.4 % (37.0-47.0) 12/31/23 06:41
Plt Count 237 10^3/uL (130-400) 12/31/23 06:41
Sodium 133 mmol/L (135-145) L 01/01/24 07:15
Potassium 4.5 mmol/L (3.5-5.1) 01/01/24 07:15
BUN 21 mg/dl (7-17) H 01/01/24 07:15
Creatinine 0.7 mg/dL (0.6-1.0) 01/01/24 07:15
Glucose 128 mg/dl (70-99) H 01/01/24 07:15
Vital Signs and I&O:
Vital Signs
Temp Pulse Resp BP Pulse Ox
98.0 F 60 18 131/55 96
01/01/24 07:00 01/01/24 07:52 01/01/24 07:00 01/01/24 07:00 01/01/24 08:10
Vital Signs
Temp Pulse Resp BP Pulse Ox
98.0 F 60 18 131/55 96
01/01/24 07:00 01/01/24 07:52 01/01/24 07:00 01/01/24 07:00 01/01/24 08:10
Intake & Output
12/30/23 12/31/23 01/01/24 01/02/24
07:59 07:59 07:59 07:59
Intake Total 1380 / 1380
Balance 1380 / 1380
Physical Exam
Physical Exam
GEN: No distress, awake, alert,oriented x3
HEENT: supple, anicteric, mmm, eomi
LUNGS: Exp wheezes B/L
CV: Reg, S1/S2, no murmur
ABD: soft, BS+, NT/ND
EXT: No cyanosis, clubbing, edema
NEURO: Gross non-focal
SKIN: Warm, pink, dry. No rash
--- NOTE | 2024-01-01 14:09 | CARDSERVLU ---
Echocardiogram with Lumason completed after protocol screening completed. Allergies verified.
Patent IV site: ___lac__
IV site flushed with 0.9% NaCl pre and post administration.
Diluted bolus method utilized to enhance visualization of ventricular stacy.
Total volume given: ___5_ mL
Patient tolerated all procedures well without complications.
[2024-01-01] MEDS: BENADRYL 12.5 MG IV (14:20)
[2024-01-01 15:00] VITALS: BP 149/71
--- NOTE | 2024-01-01 16:10 | CM ---
Pt changed to inpatient status.
Spoke with patient in room .
she said she is going for surgery tomorrow.
IMM letter given explained signed on chart.
Offered VN she declined .
PLAN Home no needs
[2024-01-01] MEDS: LIPITOR 10 MG PO (21:15)
[2024-01-02] VITALS (13 sets, daily range): BP systolic 106–152; BP diastolic 53–86
[2024-01-02] MEDS: TYLENOL 1000 MG PO (02:07)
[2024-01-02] MEDS: DECADRON 4 MG IV ×2 (04:51→21:46)
[2024-01-02] MEDS: DILAUDID 0.5 MG IV (05:18)
[2024-01-02] MEDS: SYMBICORT 80/4.5 MCG INHALER 2 PUFF INH ×2 (07:42→19:53)
[2024-01-02] MEDS: SPIRIVA RESPIMAT 2.5 MCG 2 PUFF INH (07:42)
[2024-01-02] MEDS: LIDOCAINE 4% PATCH 1 PATCH TOPICAL (08:24)
[2024-01-02] MEDS: NICODERM TRANSDERMAL 21 MG TRANSDERM (08:25)
[2024-01-02] MEDS: LIORESAL 5 MG PO (08:29)
[2024-01-02] MEDS: ROXICODONE 10 MG PO ×3 (08:30→21:46)
[2024-01-02] MEDS: SENOKOT PO (08:33)
[2024-01-02] MEDS: MIRALAX PO (08:33)
[2024-01-02] MEDS: COLACE PO (08:34)
--- NOTE | 2024-01-02 08:44 | W.PN.HOSP.TC ---
Today's Communication/Plan
-
Plan for discectomy today.
Assessment / Plan
Assessment / Plan
Physical exam:
General: Well Developed, Well Nourished and No Apparent Distress
HEENT: NormoCephalic, Moist mucous membranes and Atraumatic
Respiratory: Clear
Cardiac: S1/S2 and Regular Rhythm; No Murmur or Rub
GI: Soft, Non Tender, Non Distended and Normal Bowel Sounds; No Organomegaly
Cardiovascular system S1-S2 appreciated
Chest clear to auscultation
Lower extremity numbness-chronic
Bilateral lower extremity good strength 5 x 5. But 3 out of 5 strength in the left hip flexor and knee extensor. There is hyperesthesia left lower extremity.
Lumbar/sciatic area tenderness on the left side
MRI lumbar:
IMPRESSION:
1. Left lateral disc protrusion at L2-L3 impinges upon the extraforaminal segment of the exiting left L2 nerve root. Mild adjacent left lateral paravertebral soft tissue edema.
2. Chronic degenerative and postoperative changes of the lumbar spine, as detailed above.
3. No significant spinal canal stenosis.
4. Varying degrees of chronic multilevel bilateral neuroforaminal stenosis.
5. Small left posterior disc extrusion at L5-S1 narrows the left lateral recess and contacts the descending left S1 nerve root.
A/P:
#Acute back pain with left lower extremity radiculopathy and L2-L3 disc herniation:
-Neurosurgery consulted and plan for surgery tomorrow Friday
-Cardiology consulted preop and okay for surgery
-Holding aspirin and Plavix preop and resume postop when cleared by surgery
-Echocardiogram unremarkable
-Continue pain control
#Leukocytosis likely due to steroids
-Afebrile
#Hyponatremia
-133 yesterday
#hemoconcentration likely dehydration
-hgb 17.4, down to 15.3
#hxt of COPD
-not in acute exacerbation
-nebs from home continued
# Smoking cessation
# Ongoing tobacco use
-counseled
-on nicotine patch
#Hyperlipidemia
-statin
# Peripheral arterial disease
- Left leg stents x2
- c/w� SKIN DRIER DAPL Rx postop
#DVT prophylaxis
-Lovenox
#CODE status
-full code
Anticipated Discharge: 24 - 48 hours
Subjective/Interval History
-
Date of Service: January 02, 2024
Patient still having significant amount of back pain radiating to leg. No chest pain or shortness of breath. Patient ready for surgery today. Afebrile
Objective Data
-
Vital Signs:
Vital Signs
Temp Pulse Resp BP Pulse Ox
98.1 F 61 16 146/74 94
01/02/24 07:35 01/02/24 07:46 01/02/24 07:46 01/02/24 07:35 01/02/24 07:46
I&O
01/01/24 01/02/24 01/03/24
06:59 06:59 06:59
Intake Total 1080 / 1080
Balance 1080 / 1080
Review of Systems
-
All other systems: Reviewed and negative
--- NOTE | 2024-01-02 14:08 | OR.RPT ---
Operative Report
Operative Report
Date: 01/02/2024
Preoperative diagnosis: Left L2-3 disc herniation with radiculopathy
Postoperative diagnosis: Same
Procedure:
1. Left L2-3 far lateral approach for microdiscectomy
2. Utilization of the microscope for microscopic dissection/visualization
3. Interpretation of intraoperative fluoroscopy.
Surgeon: Birgit Schaffer MD
Horticultural Farmworker: CAROL Casillas
Anesthesia: General
Anesthesiologist: MD Jordon
Intraoperative findings: Left extraforaminal disc herniation causing compression of the nerve root.
Complications: none
Pathology: Disc material sent for permanent specimen
Drains: None
Disposition: Extubated, and transferred to the PACU
Condition: Stable
Indications for the procedure: This is a 73-year-old female that presented with acute onset of left lower extremity proximal leg pain. She has a past medical history of multiple spinal surgeries in the past. She denies any inciting factors. She
had intractable pain, which was refractory to the pain medications, steroid pack. She also had left lower extremity weakness. She denied any bowel or bladder changes. She was admitted, and MRI of the lumbar spine demonstrated a left L2-L3
extraforaminal/far lateral disc herniation. She was unable to tolerate physical therapy due to significant pain on high pain medication doses. Therefore patient was offered left L2-3 microdiscectomy via extraforaminal approach. All risks,
benefits, alternatives of the surgery, which included bleeding, infection, injury to arteries, nerves, veins, failure to improve symptoms, worsening of symptoms, CSF leak, disc herniation were discussed with patient. She expressed understanding and
wished to proceed, given the risks.
Description of the procedure: Patient was brought into the operating room, and induced under general anesthesia. She was then carefully positioned from the supine position to the prone position onto the Natan table. Special care was taken to
ensure that all pressure points including her arms, eyes, chin, chest, groin, knees were properly padded. 1010 drape was placed over the gluteal fold. The lumbar spine was then prepped and draped in the standard surgical fashion. After
appropriate timeout was performed, fluoroscopic C-arm was brought in to localize the left L2-3 level.
A left paraspinal incision was marked out. This was infiltrated with local anesthetic. Using a 10 blade, an incision was made through the skin. Dissection was then carried down through the subcutaneous tissue to the fascia. The fascia was opened
sharply using Bovie electrocautery. Blunt dissection was then carried down using a Wiltsie approach, identifying the left L2 transverse process, lateral aspect of the facet, left L3 transverse process. Lateral x-rays were taken to confirm that we
ready at the appropriate level. At this point, the microscope was brought in for appropriate dissection and visualization/illumination. Blunt dissection using a [place] 4 dissector, and 5 electrocautery was then utilized to identify the nerve
root at this level. Almost under the nerve root, there was a protuberant mass/lesion. This was carefully and bluntly dissected out. Ultimately, the pseudocapsule of the disc herniation was opened into, and free disc material was extracted, using
micropituitary rongeurs. This was passed off for permanent specimen. We continued to dissect until there was no evidence of free disc material compressing the nerve. The cavity was then irrigated with normal saline irrigation, and Gelfoam soaked
in Depo-Medrol was then placed over the nerve root. Additional local anesthetic was infiltrated to the subfascial musculature. Caitlin tractors removed, and the fascia was reapproximated using interrupted 0 Vicryl sutures. Subcutaneous fatty
layer was then reapproximated using a layer of 2-0 Vicryl sutures. The dermis and epidermis was then reapproximated using interrupted inverted 3-0 Vicryl sutures. The skin was then dressed using Mastisol, Steri-Strips, Telfa, and Tegaderm. All
needle sponge counts were correct at the end of the procedure. Hemostasis was achieved using surgical hemostatic material, bipolar cautery, and Bovie electrocautery.
Patient was then carefully positioned for the prone position to the supine position and extubated. She was then transferred to the recovery room. She was seen in recovery room, at which time her neurological examination remained stable compared
with her preoperative examination. My clinical education assistant, CAROL Romero, was necessary and present for opening, irrigation, retraction, suture management.
[2024-01-02] MEDS: DECADRON IV (14:29)
--- NOTE | 2024-01-02 14:57 | PTCARENOTE ---
Patient admitted from pacu post L2-L3 lateral microdiscectomy. She was transferred from another floor post op.Patient rates her pain at an 8 out of 10 .The dressing middle back is clean and dry with no drainage.Vital signs are stable.The patient is
in her bed with the call barry in reach.
--- NOTE | 2024-01-02 15:01 | W.PN.CARDCBS ---
Addendum entered and electronically signed by Christiano Aguayo DO 01/02/24 16:57:
I saw and examined the patient.
The [employer]'s note was reviewed and I agree with the note.
Comment:
resting comfortably post operatively; no complaints. No CP, sob, palpitations, lh, dizziness, or weakness.
GEN: No distress, awake, alert, oriented x3
HEENT: supple, anicteric, mmm, eomi
LUNGS: CTA anterolaterally B/L
CV: Reg, S1/S2, no murmur
ABD: soft, BS+, NT/ND
EXT: No cyanosis, clubbing, edema
NEURO: Gross non-focal
SKIN: Warm, pink, dry. No rash
A/P as below
Routine post-op care per surgery
Please resume ASA/Plavix when stable from surgical standpoint
Consider antihypertensive while in-patient prior to discharge if remains elevated; otherwise can be addressed as outpatient by PCP
Stable from CV standpoint, no further recommendations at this time, will sign off. Please call with questions.
Original Note:
Today's Communication / Plan
-
continue post op care
stable cardiology status
resume OP asa, plavix when ok from neurosurg standpoint
consider addition of antihypertensive, can be addressed as OP with PCP
Impression / Plan
-
Primary Sales Development Coordinator: last seen by Dr. DARON Sandy in 2019
Assessment:
Presentation with intractable back pain
Left L2-3 disc herniation by lumbar spine MRI
PAD with prior left lower extremity stenting 2018, chronically occluded bilateral SFAs
COPD
Ongoing tobacco use
Hyperlipidemia
Spinal stenosis/lumbar disc disease with history of prior laminectomy with bone grafting 03/2019
Bilateral peripheral neuropathy
Nonobstructive CAD by cath in 2019
Chronic bifascicular block by EKG
Family history of CAD
ECHO 2019 [facility]: EF 60%, grade 1 diastolic dysfunction, trace TR
Cardiac catheterization 02/2019 at [facility]: 20% distal left main stenosis, proximal 20% LAD stenosis, mid 30 to 40% LAD stenosis, 30% proximal to mid stenosis and first diagonal, ostial and proximal circumflex with 10 to 20% stenosis, proximal and mid
RCA junction with 30% stenosis, proximal third of mid RCA 40 to 50% stenosis, 40 to 50% middle third of mid RCA stenosis
ECHO with definity 01/01/2024: TDS, EF 60 to 65%, mild MR, mildly sclerotic aortic valve without stenosis, no significant TR
Plan:
-Patient presents with intractable lower back pain. By imaging noted to have left L2-3 disc herniation.
-s/p L2/L3 microdiscectomy today
-Continue pain management per primary service
-no CP, SOB
-preop EKG sinus rhythm with known bifascicular block. preop echo with preserved EF
-Continue outpatient statin
-resume OP asa, plavix postoperatively as able
-Follow blood pressure trends. consider addition of low dose amlodipine pending BP trends. follow up with PCP upon DC
-d/w nursing
Progress Note - Sales Development Coordinator
Subjective
Date of Service: January 02, 2024
no CP, SOB
Objective
Labs:
12/31/23 06:41
01/01/24 07:15
Labs
Hgb 15.3 g/dL (12.0-16.0) 12/31/23 06:41
Hct 45.4 % (37.0-47.0) 12/31/23 06:41
Plt Count 237 10^3/uL (130-400) 12/31/23 06:41
Sodium 133 mmol/L (135-145) L 01/01/24 07:15
Potassium 4.5 mmol/L (3.5-5.1) 01/01/24 07:15
BUN 21 mg/dl (7-17) H 01/01/24 07:15
Creatinine 0.7 mg/dL (0.6-1.0) 01/01/24 07:15
Glucose 128 mg/dl (70-99) H 01/01/24 07:15
Vital Signs and I&O:
Vital Signs
Temp Pulse Resp BP Pulse Ox
97.4 F 81 16 152/86 99
01/02/24 14:47 01/02/24 14:47 01/02/24 14:47 01/02/24 14:45 01/02/24 14:47
Vital Signs
Temp Pulse Resp BP Pulse Ox
97.4 F 81 16 152/86 99
01/02/24 14:47 01/02/24 14:47 01/02/24 14:47 01/02/24 14:45 01/02/24 14:47
Intake & Output
12/31/23 01/01/24 01/02/24 01/03/24
07:59 07:59 07:59 07:59
Intake Total 1380 / 1380 1080 / 1080 60 / 60
Balance 1380 / 1380 1080 / 1080 60 / 60
Physical Exam
Physical Exam
GEN: No distress, awake, alert, oriented x3
HEENT: supple, anicteric, mmm, eomi
LUNGS: CTA anterolaterally B/L
CV: Reg, S1/S2, no murmur
ABD: soft, BS+, NT/ND
EXT: No cyanosis, clubbing, edema
NEURO: Gross non-focal
SKIN: Warm, pink, dry. No rash
[2024-01-02] MEDS: BENADRYL 25 MG PO (21:46)
[2024-01-02] MEDS: COLACE 100 MG PO (21:46)
[2024-01-02] MEDS: ANCEF 10 IV (22:20)
[2024-01-03 02:57] VITALS: BP 132/60
[2024-01-03] MEDS: DECADRON 4 MG IV ×2 (03:02→13:04)
[2024-01-03] MEDS: ANCEF 10 IV ×2 (03:02→13:05)
[2024-01-03] MEDS: FLEXERIL 10 MG PO (03:07)
[2024-01-03 07:40] VITALS: BP 130/64
[2024-01-03] MEDS: SYMBICORT 80/4.5 MCG INHALER 2 PUFF INH ×2 (07:51→18:12)
[2024-01-03] MEDS: SPIRIVA RESPIMAT 2.5 MCG 2 PUFF INH (07:51)
--- NOTE | 2024-01-03 08:15 | W.PN.HOSP.TC ---
Today's Communication/Plan
-
see note
Assessment / Plan
Assessment / Plan
MRI lumbar:
1. Left lateral disc protrusion at L2-L3 impinges upon the extraforaminal segment of the exiting left L2 nerve root. Mild adjacent left lateral paravertebral soft tissue edema.
2. Chronic degenerative and postoperative changes of the lumbar spine, as detailed above.
3. No significant spinal canal stenosis.
4. Varying degrees of chronic multilevel bilateral neuroforaminal stenosis.
5. Small left posterior disc extrusion at L5-S1 narrows the left lateral recess and contacts the descending left S1 nerve root.

# Acute back pain with left lower extremity radiculopathy and L2-L3 disc herniation:
-s/p microdiscectomy by Neurosurg on 01/01
-Cardiology consulted preop and okay for surgery
-Holding aspirin and Plavix preop and resume postop when cleared by surgery
-Echocardiogram unremarkable
-on dexamethasone
-on muscle relaxants, monitor for signs of sedation
-some paresthesia in L ant thigh, pain controlled with current regimen
# Constipation
- minimal BM with suppos on Fri, nothing after
- enmema and oral lactulose ordered,
#Leukocytosis likely due to steroids
-Afebrile overnight, continue monitor
#Hyponatremia
-morning lab pending
#hemoconcentration likely dehydration
#hx of COPD
-not in acute exacerbation
-nebs from home continued
-some rhonchi on exam, provide IS
# Smoking cessation
# Ongoing tobacco use
-counseled
-on nicotine patch
#Hyperlipidemia
-statin
# Peripheral arterial disease
- Left leg stents x2
- c/w� WOOD GRINDER OPERATOR DAPL Rx postop
DVT prophylaxis-Lovenox
CODE status -full code
Anticipated Discharge: 24 - 48 hours
Subjective/Interval History
-
Date of Service: January 03, 2024
sitting comfortably in bed
have significant paresthesia in left thigh
some back pain
Objective Data
-
Labs:
Laboratory Results
01/03/24
08:10
Sodium Pending
Potassium Pending
Chloride Pending
Carbon Dioxide Pending
BUN Pending
Creatinine Pending
Glucose Pending
Calcium Pending
Total Bilirubin Pending
AST Pending
ALT Pending
Alkaline Phosphatase Pending
Vital Signs:
Vital Signs
Temp Pulse Resp BP Pulse Ox
97.9 F 60 16 130/64 94
01/03/24 07:40 01/03/24 07:54 01/03/24 07:54 01/03/24 07:40 01/03/24 07:54
I&O
01/02/24 01/03/24 01/04/24
06:59 06:59 06:59
Intake Total 1080 / 1080 1020 / 1020
Balance 1080 / 1080 1020 / 1020
Review of Systems
-
Respiratory: Reports No Symptoms
Cardiac: Reports No Symptoms
Abdomen/GI: Reports No Symptoms
Physical Exam
-
General: Obese; Negative Appears in Distress
HEENT: Negative Oxygen
Respiratory: Rhonchi
Cardiac: Regular Rhythm and S1/S2; Negative Murmur
GI: Soft, Nontender, Nondistended and Normal Bowel Sounds
Neuro: Awake, Alert, Oriented, No Motor Deficits and Other (Left anterior thigh paresthesia)
Psych: Calm
[2024-01-03] MEDS: LIDOCAINE 4% PATCH 1 PATCH TOPICAL (08:19)
[2024-01-03] MEDS: NICODERM TRANSDERMAL 21 MG TRANSDERM (08:20)
[2024-01-03] MEDS: ROXICODONE 10 MG PO ×2 (08:21→14:46)
[2024-01-03] MEDS: COLACE 100 MG PO ×2 (08:22→22:17)
[2024-01-03 09:17] LABS: ALT (SGPT) 71 U/L (0-35); AST (SGOT) 35 U/L (14-36); Albumin 3.8 g/dl (3.5-5.0); Alkaline Phosphatase 60 U/L (38-126); Blood Urea Nitrogen 24 mg/dl (7-17); Calcium 8.7 mg/dl (8.4-10.2); Carbon Dioxide 28 mmol/L (22-30); Chloride 101 mmol/L (98-107); Estimated Creatinine Clearance 85 ml/min; Glucose 125 mg/dl (70-99); Potassium 4.3 mmol/L (3.5-5.1); Sodium 134 mmol/L (135-145); Total Bilirubin 0.9 mg/dl (0.2-1.3); Total Protein 6.8 g/dl (6.3-8.2); eGFR > 60.00
[2024-01-03 10:49] VITALS: BP 115/67; PULSE 71; O2SAT 95
[2024-01-03 10:50] VITALS: BP 115/67; PULSE 71; O2SAT 95
[2024-01-03 12:15] VITALS: BP 128/64
--- NOTE | 2024-01-03 15:44 | CM ---
Reviewed the chart note and spoke with the patient at the bedside. IMM signed and placed on the chart. CM continues to be available to patient/family and is monitoring medical plan for needs at discharge.
Plan: Discharge to home when medically stable. No anticipated needs.
[2024-01-03 15:54] VITALS: BP 135/62
--- NOTE | 2024-01-03 16:05 | PN.NS ---
Subjective
-
Patient seen and examined. Reports that left proximal hip flexor weakness is improved, but has significant dysesthesia/hypersensitivity really over left proximal thigh.
Physical Exam
-
Exam:
Awake, alert, no apparent distress.
Motor: 5/5 strength in bilateral lower extremities in all muscle groups.
Dressing is clean and dry
Significant hypersensitivity to light touch over the left proximal thigh.
Problems
-
Problem Status Onset Code
Intractable low back pain M54.59
Assessment / Plan
-
Postoperative 1, status post left L2-3 far lateral microdiscectomy
--Patient with persistent dysesthesias/hyperesthesias over left proximal thigh, expected given location of disc herniation (extraforaminal/far lateral)
--Recommend gabapentin 300 mg p.o. twice daily
--Will change steroids to 24 hours of dexamethasone, 10 mg IV x 1 now
--PT/OT.
--Lidocaine patches to left proximal thigh
--Okay to resume aspirin and Plavix on postoperative day 5, 01/07/2024.
-- Will follow.
Patient can go home per my specialty: Tomorrow
Today's Communication
-
Discussed with patient's RN, patient, and hospital medicine
[2024-01-03] MEDS: DUPHALAC/CHRONULAC 20 GRAMS PO (17:07)
[2024-01-03] MEDS: DECADRON 10 MG IV (17:07)
[2024-01-03] MEDS: DUPHALAC/CHRONULAC PO (22:17)
[2024-01-03] MEDS: NEURONTIN 300 MG PO (22:17)
[2024-01-04 00:08] VITALS: BP 131/86
[2024-01-04] MEDS: DECADRON 4 MG IV ×3 (00:20→11:49)
[2024-01-04] MEDS: ROXICODONE 10 MG PO ×2 (00:20→08:00)
[2024-01-04 07:01] LABS: ALT (SGPT) 74 U/L (0-35); AST (SGOT) 29 U/L (14-36); Albumin 3.6 g/dl (3.5-5.0); Alkaline Phosphatase 66 U/L (38-126); Blood Urea Nitrogen 26 mg/dl (7-17); Calcium 9.1 mg/dl (8.4-10.2); Carbon Dioxide 28 mmol/L (22-30); Chloride 100 mmol/L (98-107); Estimated Creatinine Clearance 85 ml/min; Glucose 132 mg/dl (70-99); Potassium 4.7 mmol/L (3.5-5.1); Sodium 136 mmol/L (135-145); Total Protein 6.5 g/dl (6.3-8.2); eGFR > 60.00
[2024-01-04] MEDS: SYMBICORT 80/4.5 MCG INHALER 2 PUFF INH (07:29)
[2024-01-04] MEDS: SPIRIVA RESPIMAT 2.5 MCG 2 PUFF INH (07:29)
[2024-01-04 07:35] VITALS: BP 113/50
[2024-01-04] MEDS: COLACE 100 MG PO (07:46)
[2024-01-04] MEDS: NICODERM TRANSDERMAL 21 MG TRANSDERM (07:46)
[2024-01-04] MEDS: LIDOCAINE 4% PATCH 1 PATCH TOPICAL ×2 (07:46→07:52)
[2024-01-04] MEDS: NEURONTIN 300 MG PO (07:46)
[2024-01-04] MEDS: DUPHALAC/CHRONULAC 20 GRAMS PO (07:46)
--- NOTE | 2024-01-04 11:38 | W.PN.HOSP.TC ---
Today's Communication/Plan
-
discharge home if mentation better
d/c further gabapentin
continue IV steroids while in hospital
Assessment / Plan
Assessment / Plan
MRI lumbar:
1. Left lateral disc protrusion at L2-L3 impinges upon the extraforaminal segment of the exiting left L2 nerve root. Mild adjacent left lateral paravertebral soft tissue edema.
2. Chronic degenerative and postoperative changes of the lumbar spine, as detailed above.
3. No significant spinal canal stenosis.
4. Varying degrees of chronic multilevel bilateral neuroforaminal stenosis.
5. Small left posterior disc extrusion at L5-S1 narrows the left lateral recess and contacts the descending left S1 nerve root.

# Acute back pain with left lower extremity radiculopathy and L2-L3 disc herniation:
-s/p microdiscectomy by Neurosurg on 01/01
-Cardiology consulted preop and okay for surgery
-Echocardiogram unremarkable
-on dexamethasone
-on muscle relaxants, monitor for signs of sedation
-Paresthesia better in left anterior thigh. Pain is improved as well.
-Unable to tolerate higher dose of gabapentin patient feeling lethargic/lightheaded - stop further dosing.
# Constipation -resolved
-required dose of lactulose
#Leukocytosis likely due to steroids
-Afebrile overnight, continue monitor
#Hyponatremia
-pain/ADH excess related, resolved
#hemoconcentration likely dehydration
#hx of COPD
-not in acute exacerbation
-nebs from home continued
-some rhonchi on exam, provide IS
# Smoking cessation
# Ongoing tobacco use
-counseled
-on nicotine patch
#Hyperlipidemia
-statin
# Peripheral arterial disease
- Left leg stents x2
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
DVT prophylaxis-Lovenox
CODE status -full code
Anticipated Discharge: Within 24 hours
Subjective/Interval History
-
Date of Service: January 04, 2024
patient sedated/lethargic
paresthesia controlled in left thigh
Objective Data
-
Labs:
Laboratory Results
01/04/24
05:49
Sodium 136
Potassium 4.7
Chloride 100
Carbon Dioxide 28
BUN 26 H
Creatinine 0.7
Glucose 132 H
Calcium 9.1
Total Bilirubin 1.0
AST 29
ALT 74 H
Alkaline Phosphatase 66
Vital Signs:
Vital Signs
Temp Pulse Resp BP Pulse Ox
98.1 F 58 17 113/50 96
01/04/24 07:35 01/04/24 07:35 01/04/24 07:35 01/04/24 07:35 01/04/24 07:35
I&O
01/03/24 01/04/24 01/05/24
06:59 06:59 06:59
Intake Total 1020 / 1020 720 / 720
Balance 1020 / 1020 720 / 720
Review of Systems
-
Respiratory: Reports No Symptoms
Cardiac: Reports No Symptoms
Abdomen/GI: Reports No Symptoms
Physical Exam
-
General: Obese; Negative Appears in Distress
HEENT: Negative Oxygen
Respiratory: Rhonchi
Cardiac: Regular Rhythm and S1/S2; Negative Murmur
GI: Soft, Nontender, Nondistended and Normal Bowel Sounds
Neuro: Awake, Alert, Oriented, No Motor Deficits and Other (Left anterior thigh paresthesia)
Psych: Calm
--- NOTE | 2024-01-04 15:01 | PN.NS ---
Subjective
-
Patient seen and examined. Had increased lethargy with gabapentin, which was also stopped. Currently, patient is much more awake, and alert. She also reports that her left leg dysesthesias are significantly improved, with lidocaine patch.
Physical Exam
-
Exam:
Exam:
Awake, alert, no apparent distress.
Motor: 5/5 strength in bilateral lower extremities in all muscle groups.
Dressing removed, Steri-Strips are intact
Problems
-
Problem Status Onset Code
Intractable low back pain M54.59
Assessment / Plan
-
Postoperative 2, status post left L2-3 far lateral microdiscectomy
--Patient with persistent dysesthesias/hyperesthesias over left proximal thigh, expected given location of disc herniation (extraforaminal/far lateral)
Improved today with lidocaine patch and dexamethasone
--Gabapentin discontinued
--Okay to transition dexamethasone to Medrol Dosepak for discharge.
--Lidocaine patches to left proximal thigh
--Okay to resume aspirin and Plavix on postoperative day 5, 01/07/2024.
-- Cleared for discharge from neurosurgical standpoint. Patient to follow-up in the office with me in 2 weeks patient. Patient provided my contact information/business card should she have any questions or concerns. Patient also advised regarding
wound care and activity level.
Patient can go home per my specialty: Today
Today's Communication
-
Discussed with patient, RN, and hospital medicine for
[2024-01-04 15:43] VITALS: BP 109/75
[2024-01-04] MEDS: DUPHALAC/CHRONULAC PO (16:02)
--- NOTE | 2024-01-04 16:02 | W.DCSUMMARY ---
Discharge Summary
Discharge Data
Date of Admission: 01/01/24
Date of Discharge: 01/04/24
-
Pending Results: No
Hospital Course
Discharging Physician : Dr Rajesh Alvarado
Disposition :
Primary care physician : Dr Immanuel Orellana
Principal Discharge diagnosis :
Acute lumbar radiculopathy from L2-L3 disc herniation
Hyponatremia
Toxic metabolic encephalopathy from medication
Chronic Discharge diagnosis :
Progressive pulmonary disease
Tobacco use
Hyperlipidemia
Peripheral arterial disease
History of lumbar spinal surgery
Hospital Course :
Patient is a 73-year-old female with above-mentioned past medical history came to ER with new onset of back pain. Patient stated of pain radiating to the left leg. Patient also had complaints of chronic numbness in left leg which has been
unchanged. Patient had a CT abdomen pelvis which did not show any acute abnormality in the ER. On clinical exam concern of patient having possibly lumbar radiculopathy related issue. Follow-up MRI L-spine was done which showed L2-L3 disc
herniation likely cause of pain. Neurosurgery was involved in care and who recommended patient to take 2 OR for a microdiscectomy. In light of patient history cardiology clearance was requested preoperatively. An echocardiogram was checked and
showed preserved EF without any major valvulopathy. Patient was cleared for surgery and had an uneventful L2-L3 microdiscectomy on 01/02/2024. Postoperatively patient course remained uncomplicated except new developing paresthesia and thigh for
which patient required high-dose of steroid course. Symptoms improved nicely after short steroids cares and patient was discharged home with home health care.
Important imaging findings :
MRI L spine
1. Left lateral disc protrusion at L2-L3 impinges upon the extraforaminal segment of the exiting left L2 nerve root. Mild adjacent left lateral paravertebral soft tissue edema.
2. Chronic degenerative and postoperative changes of the lumbar spine, as detailed above.
3. No significant spinal canal stenosis.
4. Varying degrees of chronic multilevel bilateral neuroforaminal stenosis.
5. Small left posterior disc extrusion at L5-S1 narrows the left lateral recess and contacts the descending left S1 nerve root.
Procedure findings :
None
Discharge Plan
-
Patient Disposition: Home (Routine Discharge)
Discharge Diagnosis/Procedures: Lumbar disc prolapse s/p discectomy
Condition: Fair
Diet: As tolerated and Regular
Activity: No strenuous activity
Driving Restrictions: No driving for 2 weeks
Bathing Restrictions: No baths, allow water to hit front of body
Wound Care: OK to remove dressing on Friday01/04/2024. Keep steristrips on and allow them to fall off on their own
Referrals:
Ismael Rdz MD [Active] -
Immanuel Orellana DO [Family Provider] - in one week
Birgit Schaffer MD [Active] - (follow up in 2 weeks for postop visit. )
Colton Soares MD [Non-Admitting Privileges] -
Prescriptions:
New
lidocaine 4 % Adhesive Patch,Medicated
1 patch topical DAILY Qty: 5 0RF
polyethylene glycol 3350 [HealthyLax] 17 gram Powder In Packet
17 g PO DAILY Qty: 30 0RF
methylprednisolone [Medrol (Grupo)] 4 mg tablets,dose pack
See Rx Instructions .ROUTE .COMPLEX Qty: 21 0RF
Rx Instructions:
for 6 days
Continued
simvastatin 20 MG tablet
20 mg PO HS
acetaminophen [Tylenol] 325 mg Tablet
650 mg PO Q4HPRN PRN (Reason: mild pain)
aspirin 81 mg Tablet,Delayed Release (Dr/Ec)
81 mg PO DAILY
Trelegy Ellipta 100-62.5-25 mcg blister with device
1 inh INHALATION R DAILY
Centrum Chewables 8 mg-400 mcg- 10 mcg Tablet,Chewable
1 tab PO DAILY@1500
tetrahydrozoline [Visine] 0.05 % Drops
1 drp BOTH EYES DAILY
docusate sodium [Stool Softener] 100 mg Capsule
100 - 200 mg PO BIDPRN PRN (Reason: constipation)
albuterol sulfate 90 mcg/actuation Hfa Aerosol Inhaler
2 puff INHALATION R Q4HPRN PRN (Reason: sob)
oxycodone 10 mg tablet
10 mg PO Q8HPRN PRN (Reason: severe pain)
Patient Comments:
12/30/2023, pt. filled this med. on 12/27/2023 for 14 tablets per PDMP.
clopidogrel 75 MG tablet
75 mg PO DAILY
Discontinued
prednisone 10 mg tablet
See Rx Instructions .ROUTE .COMPLEX
Patient Comments:
12/30/2023, per pt., she is on her third day of taking 50 mg but has not taken it this morning yet.
Rx Instructions:
12/30/2023,
Take By Mouth:
50 mg daily x3 days, 40 mg daily x3 days,
30 mg daily x3 days, 20 mg daily x3 days,
10 mg daily x3 days.
Discharge Orders:
Discharge Patient (As Directed); Ordered 01/04/24
Ordered By: Rajesh Alvarado
Discharge Date and Time
Discharge Date/Time: 01/04/24 16:34
Print Language: ANDORRAN
== END 2024-01-04 16:34 | disposition home or self-care (01) | DRG 519 ==
LOC: 2 SOUTH 08:16
PROVIDERS: Hospitalist; Registered Nurse; ADMITTING PHYSICIAN Hospitalist; ATTENDING PHYSICIAN Hospitalist; CONSULT PHYSICIAN Internal Medicine Cardiovascular Disease; EMERGENCY PHYSICIAN Emergency Medicine; FAMILY PHYSICIAN Family Medicine; OTHER PHYSICIAN Neurological Surgery
PROC: 0ST20ZZ Resection of Lumbar Vertebral Disc, Open Approach (ICD-10-PCS; 2024-01-01)
DX: M51.16 Intervertebral disc disorders with radiculopathy, lumbar region (principal); E87.1 Hypo-osmolality and hyponatremia; I45.2 Bifascicular block; E11.51 Type 2 diabetes mellitus with diabetic peripheral angiopathy without gangrene; E78.00 Pure hypercholesterolemia, unspecified; J44.89 Other specified chronic obstructive pulmonary disease; F17.210 Nicotine dependence, cigarettes, uncomplicated; E11.40 Type 2 diabetes mellitus with diabetic neuropathy, unspecified; M41.9 Scoliosis, unspecified; M16.12 Unilateral primary osteoarthritis, left hip; N28.1 Cyst of kidney, acquired; D72.829 Elevated white blood cell count, unspecified; T38.0X5A Adverse effect of glucocorticoids and synthetic analogues, initial encounter; E86.0 Dehydration; I35.8 Other nonrheumatic aortic valve disorders; K59.00 Constipation, unspecified; I71.40 Abdominal aortic aneurysm, without rupture, unspecified; M48.061 Spinal stenosis, lumbar region without neurogenic claudication; I25.10 Atherosclerotic heart disease of native coronary artery without angina pectoris; Z88.1 Allergy status to other antibiotic agents; Z79.82 Long term (current) use of aspirin; Z79.51 Long term (current) use of inhaled steroids; Z79.52 Long term (current) use of systemic steroids; Z79.02 Long term (current) use of antithrombotics/antiplatelets; Z82.49 Family history of ischemic heart disease and other diseases of the circulatory system
CPT/HCPCS: 88304; 72100; 72148; 76000; 80048; 80053; 85025; 85027; 93005; 93306; 94640; 96374; 96375; 96376; 97116; 97163; 97164; 97167; 99285; Q9950

== ENCOUNTER 2024-02-17 23:10 | Emergency (ER) | payer OTHER, SELFPAY ==
[2024-02-17 23:18] VITALS: BP 140/64; BMI 28.7
[2024-02-17] MEDS: LOW STRENGTH ASPIRIN 324 MG PO (23:27)
[2024-02-17] MEDS: NITROSTAT (SUBLINGUAL) 0.400000000000000022 MG SL (23:28)
--- NOTE | 2024-02-17 23:31 | EDRN ---
The patient was given 4 baby ASA and 1 NTG SL BP 140/64 prior to medication. The patients chest pain was 6/10 prior to medication.
[2024-02-17 23:32] VITALS: BP 131/74
--- NOTE | 2024-02-17 23:32 | EDRN ---
The patient states 'My pain is a 4/10 now but the pain in my back is only a pressure now.'
[2024-02-17 23:33] VITALS: BP 131/74
[2024-02-17 23:35] VITALS: BP 116/64
[2024-02-17 23:42] LABS: % Basophils 0.9 % (0-2); % Eosinophils 2.4 % (0-6); % Immature Granulocytes 0.3 % (0-0.5); % Lymphocytes 35.2 % (20.5-51.1); % Monocytes 7.2 % (1.7-9.3); Absolute Basophils 0.1 10^3/uL (0-0.2); Absolute Eosinophils 0.2 10^3/uL (0-0.7); Absolute Lymphocytes 3.1 10^3/uL (1.2-3.4); Absolute Monocytes 0.6 10^3/uL (0.1-0.6); Absolute Neutrophils 4.7 10^3/uL (1.4-6.5); Hematocrit 42.7 % (37.0-47.0); Mean Corp Hgb Conc. 35.1 g/dL (33.0-37.0); Mean Corpuscular Hgb 31.7 pg (27.0-31.0); Mean Corpuscular Volume 90.3 fL (81.0-99.0); Nucleated Red Blood Cells % 0 %; Platelet Count 235 10^3/uL (130-400); Red Blood Cell Count 4.73 10^6/uL (4.20-5.40); Red Cell Dist. Width 14.6 % (11.5-14.5); White Blood Cell Count 8.8 10^3/uL (4.8-10.8)
[2024-02-17 23:56] LABS: ALT (SGPT) 27 U/L (0-35); AST (SGOT) 27 U/L (14-36); Albumin 3.9 g/dl (3.5-5.0); Alkaline Phosphatase 80 U/L (38-126); Blood Urea Nitrogen 19 mg/dl (7-17); Calcium 9.6 mg/dl (8.4-10.2); Carbon Dioxide 25 mmol/L (22-30); Chloride 108 mmol/L (98-107); Estimated Creatinine Clearance 61 ml/min; Glucose 134 mg/dl (70-99); Potassium 3.8 mmol/L (3.5-5.1); Sodium 141 mmol/L (135-145); Total Bilirubin 0.5 mg/dl (0.2-1.3); eGFR > 60.00
[2024-02-18] VITALS (14 sets, daily range): BP systolic 110–138; BP diastolic 59–85
[2024-02-18 00:08] LABS: Troponin I < 0.012 ng/ml
--- NOTE | 2024-02-18 00:31 | ED.GENMED ---
History of Present Illness
<DO Karen Chapman Last Filed: 02/18/24 03:02>
General
Chief Complaint: Chest Pain
Source: patient and family
Exam Limitations: none
Time Seen by Provider: 02/17/24 23:14
Nursing documentation reviewed up to this point in time: agreed with
Travel History
Have you had any contact with someone who has COVID-19?: No
Do you have any symptoms of coronavirus? Fever > 100 degrees, chills, cough, shortness of breath, sore throat, loss of taste or smell, muscle aches, or headache?: No
History of Present Illness
History of Present Illness:
73 yo female presents to the emergency department complaining of chest pain rating to her back. This began 30 minutes ago. No aggravating relieving factors. History of peripheral artery disease.
Past History
<DO Karen Chapman Last Filed: 02/18/24 03:02>
Past History
ED Past Medical History: COPD, Hypercholesterolemia and Other (Peripheral vascular disease, chronic bronchitis)
ED Past Surgical History: Cardiac (Cardiac catheterization 02/2019 at [facility]SH: 20% distal left main stenosis, proximal 20% LAD stenosis, mid 30 to 40% LAD stenosis, 30% proximal to mid stenosis and first diagonal, ostial and proximal circumflex with 10
to 20% stenosis, proximal and mid RCA junction with 30% stenosis, proximal third of mid), Cholecystectomy, Orthopedic and Other (Peripheral vascular procedures)
Social History
Tobacco: Smoker
Alcohol: None
Drug: None
Living: with family
Employment: Retired
Family History
Family History: Other
Review of Systems
<DO Karen Chapman Last Filed: 02/18/24 03:02>
Review of Systems
Allergies reviewed?: Yes
All Other Systems: Not applicable
Constitutional: Reports no symptoms
EENT: Reports no symptoms
Respiratory: Reports no symptoms
Cardiac: Reports chest pain
ABD/GI: Reports no symptoms
: Reports no symptoms
Musculoskeletal: Reports no symptoms
Skin: Reports no symptoms
Neurological: Reports no symptoms
Endocrine: Reports no symptoms
Hematologic/Lymphatic: Reports no symptoms
Psychiatric: Reports no symptoms
Phy Exam
<Aryan Mak, DO - Last Filed: 02/18/24 03:02>
Physical Exam
Physical Exam:
Physical Exam
General: no apparent distress, not acutely ill
Neck: supple. no meningeal signs. normal posterior pharynx
Heart: s1/s2 regular rate and rhythm, no murmur. equal radial
pulses.
HEENT: Pupils equal round reactive to light, EOMI
Lungs: no acute respiratory distress. clear bilaterally
Abdomen: normal bowel sounds. not tender. no CVAT
Neuro: alert and oriented. no focal neurological deficits cranial nerves II through XII intact
Skin: no rash
Psychiatric: well kept. interactive and cooperative
Extremities: no edema. no calf tenderness. negative homans. good distal pulses
Scores
<Cayden Palma, DO - Last Filed: 02/18/24 07:01>
Heart Score for Chest Pain Patients
STEMI patient?: Not applicable
Course
<Aryan Mak, DO - Last Filed: 02/18/24 03:02>
Orders/Labs/Results
Orders:
Orders
02/17/24 23:13
Electrocardiogram (*1) Urgent
Reason for Study: Chest Pain
Cardiac Monitoring- Treatment ONCE
EKG- Treatment ONCE
IV Insert/Care/Rem.- Treatment PRN
O2 Therapy [RESP] Urgent
Titrate/Wean O2 to maintain O2 sat greater than (%): 90
Special Instructions: Maintain sats >/=90%
Pulse Ox/spot Check [RESP] Urgent
Quantity: 1
Special Instructions: ON ROOM AIR
02/17/24 23:24
CT Chest/abd/pelvis Angio W/wo Urgent
Comment:
Reason For Exam: chest pain radiating to back
Nitroglycerin Sublingual [Nitrostat (Sublingual)] 0.4 mg SL NOW STA
02/17/24 23:26
Aspirin Chewable [Low Strength Aspirin] 324 mg PO NOW STA
Aspirin Chewable [Low Strength Aspirin] 324 mg PO NOW STA
02/17/24 23:35
Complete Blood Count/With Diff Urgent
Comprehensive Metabolic Panel Urgent
Troponin I Urgent
02/18/24 02:29
EKG [Electrocardiogram (*1)] Urgent
Reason for Study: Chest Pain
EKG- Treatment ONCE
02/18/24 02:34
Troponin I Urgent
02/18/24 04:25
Aspirin Chewable [Low Strength Aspirin] 324 mg .ROUTE .STK-MED ONE
Abnormal Lab Results
02/17/24
23:35
MCH 31.7 H pg
(27.0-31.0)
RDW 14.6 H %
(11.5-14.5)
Chloride 108 H mmol/L
(98-107)
BUN 19 H mg/dl
(7-17)
Glucose 134 H mg/dl
(70-99)
02/17/24 23:35
02/17/24 23:35
Vital Signs
Initial and Last Documented VS:
Initial Vital Signs
Temp Pulse Resp BP Pulse Ox
98.0 F 86 16 140/64 96
02/17/24 23:18 02/17/24 23:18 02/17/24 23:18 02/17/24 23:18 02/17/24 23:18
Last Documented Vital Signs
Temp Pulse Resp BP Pulse Ox
98.0 F 64 18 138/65 96
02/17/24 23:18 02/18/24 03:45 02/18/24 03:45 02/18/24 03:45 02/17/24 23:18
<Cayden Palma DO - Last Filed: 02/18/24 07:01>
Orders/Labs/Results
Orders:
Orders
02/17/24 23:13
Electrocardiogram (*1) Urgent
Reason for Study: Chest Pain
Cardiac Monitoring- Treatment ONCE
EKG- Treatment ONCE
IV Insert/Care/Rem.- Treatment PRN
O2 Therapy [RESP] Urgent
Titrate/Wean O2 to maintain O2 sat greater than (%): 90
Special Instructions: Maintain sats >/=90%
Pulse Ox/spot Check [RESP] Urgent
Quantity: 1
Special Instructions: ON ROOM AIR
02/17/24 23:24
CT Chest/abd/pelvis Angio W/wo Urgent
Comment:
Reason For Exam: chest pain radiating to back
Nitroglycerin Sublingual [Nitrostat (Sublingual)] 0.4 mg SL NOW STA
02/17/24 23:26
Aspirin Chewable [Low Strength Aspirin] 324 mg PO NOW STA
Aspirin Chewable [Low Strength Aspirin] 324 mg PO NOW STA
02/17/24 23:35
Complete Blood Count/With Diff Urgent
Comprehensive Metabolic Panel Urgent
Troponin I Urgent
02/18/24 02:29
EKG [Electrocardiogram (*1)] Urgent
Reason for Study: Chest Pain
EKG- Treatment ONCE
02/18/24 02:34
Troponin I Urgent
02/18/24 04:25
Aspirin Chewable [Low Strength Aspirin] 324 mg .ROUTE .STK-MED ONE
Abnormal Lab Results
02/17/24
23:35
MCH 31.7 H pg
(27.0-31.0)
RDW 14.6 H %
(11.5-14.5)
Chloride 108 H mmol/L
(98-107)
BUN 19 H mg/dl
(7-17)
Glucose 134 H mg/dl
(70-99)
02/17/24 23:35
02/17/24 23:35
Vital Signs
Initial and Last Documented VS:
Initial Vital Signs
Temp Pulse Resp BP Pulse Ox
98.0 F 86 16 140/64 96
02/17/24 23:18 02/17/24 23:18 02/17/24 23:18 02/17/24 23:18 02/17/24 23:18
Last Documented Vital Signs
Temp Pulse Resp BP Pulse Ox
98.0 F 64 18 138/65 96
02/17/24 23:18 02/18/24 03:45 02/18/24 03:45 02/18/24 03:45 02/17/24 23:18
<Aryan Mak, DO - Last Filed: 02/18/24 03:02>
MDM/Problems Addressed
Differential Diagnosis Includes:
Aortic dissection, ACS, PE
MDM/Problems Addressed:
73-year-old female with chest pain. Mild improvement with nitroglycerin. Initial troponin negative. CT chest no acute findings, AAA infrarenal seen. Patient will follow-up with vascular surgery, as she has followed with Dr. Rdz in the
past. Repeat troponin pending.
Chronic conditions affecting care: COPD
Acute Exacerbation and/or Progression of Chronic Illness: COPD
<Aryan Mak, - Last Filed: 02/18/24 03:02>
*Radiology
Radiology exam reviewed: radiology read reviewed (CT chest abdomen pelvis shows emphysema, no signs of aortic dissection or thoracic aortic aneurysm, 2.8 cm infrarenal abdominal aortic aneurysm)
*Pulse Oximetry
Patient hypoxic: no
*EKG
Interpreted by ED Provider?: Yes
EKG Intrepretation Date: 02/17/24
EKG Intrepretation Time: 23:18
Interpretation: abnormal
Comparison EKG: changes noted
Heart Rate: 86
Rate: normal
Rhythm: sinus
[place]: normal axis
Interval: normal interval
QRS Pattern: right bundle branch block and other (lafb)
Ischemia: no ischemia
*Social Director Interpretation
Rate: normal
Interpretation: normal
Heart Rate: 88
Rhythm: sinus
<Cayden Palma, DO - Last Filed: 02/18/24 07:01>
*Critical Care Note
Total Time (30-74mins, 75-104mins- exclusive of procedures): Not Applicable
ED Attending Note
<Aryan Mak, DO - Last Filed: 02/18/24 03:02>
-
Portions of this chart may have been created with voice recognition software.� Occasional wrong word or��sound alike� substitutions may have occurred due to the inherent limitations of voice recognition software.
Discharge Plan
Departure
Patient Disposition: Home (Routine Discharge)
Date of Disposition: 02/18/24
Time of Disposition: 03:49
Patient with high blood pressure during this ER visit?: Yes
Discharge Problem:
Chest pain, Abdominal aortic aneurysm
Instructions: Abdominal aortic aneurysm, Chest Pain DCA Follow Up, BLOOD PRESSURE
Prescriptions:
No Action
simvastatin 20 MG tablet
20 mg PO HS
acetaminophen [Tylenol] 325 mg Tablet
650 mg PO Q4HPRN PRN (Reason: mild pain)
aspirin 81 mg Tablet,Delayed Release (Dr/Ec)
81 mg PO DAILY
Trelegy Ellipta 100-62.5-25 mcg blister with device
1 inh INHALATION R DAILY
Centrum Chewables 8 mg-400 mcg- 10 mcg Tablet,Chewable
1 tab PO DAILY@1500
docusate sodium [Stool Softener] 100 mg Capsule
100 - 200 mg PO BIDPRN PRN (Reason: constipation)
albuterol sulfate 90 mcg/actuation Hfa Aerosol Inhaler
2 puff INHALATION R Q4HPRN PRN (Reason: sob)
clopidogrel 75 MG tablet
75 mg PO DAILY
Referrals:
Ismael Rdz MD [Active] - Call in 1-3 days for appt
Immanuel Orellana DO [Family Provider] -
Interventions
Interventions:
*Risk Screen - Suicide Last Done: 02/17/24 23:18
*General Assessment Last Done: 02/17/24 23:18
*Neglect/Abuse Screening Last Done: 02/17/24 23:18
ED- Fall Risk Assessment Last Done: 02/17/24 23:18
*ED COVID-19 Vaccine History Last Done: 02/17/24 23:18
*Nursing Disposition Last Done: 02/18/24 03:50
ED- Cardiac Assessment Last Done: 02/17/24 23:25
Discharge Date and Time
Discharge Date/Time: 02/18/24 03:50
Print Language: MACEDONIAN
[2024-02-18 03:41] LABS: Troponin I < 0.012 ng/ml
== END 2024-02-18 03:50 | disposition home or self-care (01) ==
LOC: EMR 23:10
PROVIDERS: EMERGENCY PHYSICIAN Emergency Medicine; FAMILY PHYSICIAN Family Medicine
DX: R07.89 Other chest pain (principal); I71.40 Abdominal aortic aneurysm, without rupture, unspecified; J44.9 Chronic obstructive pulmonary disease, unspecified; E78.00 Pure hypercholesterolemia, unspecified; I73.9 Peripheral vascular disease, unspecified
CPT/HCPCS: 99284; 71275; 74174; 80053; 84484; 85025; 93005; Q9967

== ENCOUNTER → 2024-02-18 08:06 | Outpatient (REF) | payer OTHER, SELFPAY | LOC: PAVMRI 08:06 | PROVIDERS: ATTENDING PHYSICIAN Physician Assistant Medical; FAMILY PHYSICIAN Family Medicine | DX: M54.50 Low back pain, unspecified (principal); Z98.890 Other specified postprocedural states | CPT/HCPCS: 72158; A9575 ==

== ENCOUNTER → 2024-04-09 16:57 | Outpatient (REF) | payer OTHER, SELFPAY | LOC: PAVMRI 16:57 | PROVIDERS: ATTENDING PHYSICIAN Orthopaedic Surgery; FAMILY PHYSICIAN Family Medicine | DX: M25.561 Pain in right knee (principal) | CPT/HCPCS: 73721 ==

== ENCOUNTER → 2024-04-26 12:15 | Outpatient (REF) | payer OTHER, SELFPAY ==
[2024-04-26 14:59] LABS: Blood Urea Nitrogen 12 mg/dl (7-17); Calcium 9.6 mg/dl (8.4-10.2); Carbon Dioxide 27 mmol/L (22-30); Chloride 105 mmol/L (98-107); Glucose 97 mg/dl (70-99); Potassium 4.3 mmol/L (3.5-5.1); Sodium 140 mmol/L (135-145); eGFR > 60.00
== END ==
LOC: RCS 12:15
PROVIDERS: ATTENDING PHYSICIAN Orthopaedic Surgery; FAMILY PHYSICIAN Family Medicine
DX: Z01.818 Encounter for other preprocedural examination (principal)
CPT/HCPCS: 36415; 80048; 93005

== ENCOUNTER → 2024-04-28 16:39 | Outpatient (REF) | payer OTHER, SELFPAY | LOC: RAD 16:39 | PROVIDERS: ATTENDING PHYSICIAN Family Medicine | DX: Z01.818 Encounter for other preprocedural examination (principal) | CPT/HCPCS: 71046 ==

== ENCOUNTER → 2024-09-29 13:41 | Outpatient (REF) | payer OTHER, SELFPAY | LOC: DHVS 13:41 | PROVIDERS: ATTENDING PHYSICIAN Surgery Vascular Surgery; FAMILY PHYSICIAN Family Medicine | DX: I73.9 Peripheral vascular disease, unspecified (principal) | CPT/HCPCS: 93922; 93925 ==

== ENCOUNTER → 2025-01-12 13:51 | Outpatient (REF) | payer OTHER, SELFPAY | LOC: RAD 13:51 | PROVIDERS: ATTENDING PHYSICIAN Family Medicine | DX: R05.1 Acute cough (principal) | CPT/HCPCS: 71046 ==

== ENCOUNTER 2025-05-30 23:07 | Emergency (ER) | payer SELFPAY ==
[2025-05-30 23:22] VITALS: BP 143/73
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
[2025-05-31] MEDS: TYLENOL 1000 MG PO (03:38)
[2025-05-31 03:45] VITALS: BP 106/58
== END 2025-05-31 03:45 | disposition home or self-care (01) ==
LOC: EMR 23:07
PROVIDERS: EMERGENCY PHYSICIAN Emergency Medicine; FAMILY PHYSICIAN Family Medicine
DX: S13.4XXA Sprain of ligaments of cervical spine, initial encounter (principal); V43.52XA Car driver injured in collision with other type car in traffic accident, initial encounter; Y92.410 Unspecified street and highway as the place of occurrence of the external cause; E78.00 Pure hypercholesterolemia, unspecified; G62.9 Polyneuropathy, unspecified; I25.10 Atherosclerotic heart disease of native coronary artery without angina pectoris; I73.9 Peripheral vascular disease, unspecified; J44.9 Chronic obstructive pulmonary disease, unspecified; F17.200 Nicotine dependence, unspecified, uncomplicated; Z79.02 Long term (current) use of antithrombotics/antiplatelets; Z90.49 Acquired absence of other specified parts of digestive tract
CPT/HCPCS: 99284; 70450; 72125

== ENCOUNTER → 2025-09-26 11:19 | Outpatient (REF) | payer OTHER, SELFPAY | LOC: DHVS 11:19 | PROVIDERS: ATTENDING PHYSICIAN Surgery Vascular Surgery; FAMILY PHYSICIAN Family Medicine | DX: I73.9 Peripheral vascular disease, unspecified (principal) | CPT/HCPCS: 93922 ==